=== PATIENT | female | born 1940 | race Caucasian/White ===

== ENCOUNTER 2022-03-17 17:38 | Inpatient (IN) ==
[2022-03-17] MEDS ORDERED: FAMOTIDINE 20MG IV PUSH 20 MG/5 ML SYR IV STA (18:01)
[2022-03-17] MEDS ORDERED: ONDANSETRON INJ 2 MG/ML 2 ML VIAL IV STA (18:01)
[2022-03-17] MEDS ORDERED: SODIUM CHLORIDE 0.9% 1000ML 1,000 ML IV ONE (18:01)
[2022-03-17] MEDS ORDERED: ACETAMINOPHEN 1,000 MG/100 ML VIAL IV STA (18:01)
--- NOTE | 2022-03-17 18:23 | Emergency Department Note ---
Impression & Plan SBO (small bowel obstruction), Lower abdominal pain, Nausea & vomiting ED Provider Note NAME: ELISA HUFF AGE: 81 SEX: F ARRIVES VIA: Ambulance INFORMANT: Patient ED PROVIDER(S): Darryn Padgett MD CHIEF COMPLAINT: Abdominal pain, n/v/d. PLAN: Disposition: Admit MEDICAL DECISION MAKING: The patient is a pleasant 81-year-old woman past medical history of hypertension who presents to the emergency department via EMS, accompanied by her granddaughter for evaluation of lower abdominal pain with nausea, vomiting, diarrhea over the past several days. She denies any cough or congestion, CP, or SOB. She reports she has not been able to eat or drink much and has felt weak and dizzy. She reports she does have a history of hernia repair approximately 3-4 years ago when she was living in [place]. She recently relocated to [place] a year ago. On arrival the patient is fatigued and uncomfortable appearing but no acute distress, afebrile stable vital signs. She appears clinically dry. She is mild lower abdominal discomfort tenderness. No guarding or rebound. EKG demonstrates left bundle branch block, no sgarbossa criteria. No prior EKG for comparison. WBC, hemoglobin and platelets within normal limits. Chemistry without metabolic acidosis. BUN/creatinine>40 consistent with patient's clinically dry appearance. AST 43, nonspecific and LFTs otherwise unremarkable. High- sensitivity troponin 6.2, within normal limits. Lipase is not elevated. UA appears contaminated albeit with nitrites and 4+ bacteria. Respiratory viral panel/bio fire was negative. CT of the abdomen pelvis was performed and demonstrates evidence of small bowel obstruction. Upon reevaluation the patient did feel some improvement after IV fluid hydration, APAP, famotidine, Zofran. However still uncomfortable with pain. Case was discussed with general surgery on-call, Dr. Orozco, who reviewed the patient's images. Agrees with plan for admission to hospitalist service for conservative management with NGT and IVF hydration and will be available for inpatient consultation. Findings and plan for admission reviewed with the patient and granddaughter at the bedside. Both were in agreement. Dr. Ramirez, [facility] [place], to evaluate the patient for admission. Triage Nursing notes reviewed and agree them. Prior medical records reviewed Vital Signs: reviewed Differential diagnosis: Appendicitis, ovarian cyst, ovarian torsion, ectopic , TOA, PID, infections, diverticulitis, UTI, obstruction, mesenteric ischemia, aortic pathology, inflammatory bowel disease, renal colic, PUD, pancreatitis, biliary pathology, hernia, volvulus, constipation, as well as other pathologies. ER treatment provided: See below. Diagnostics interpreted by me: ECG: Normal sinus rhythm, 78 bpm, no ectopy, LBBB, no sgarbossa criteria. No prior for comparison. Cardiac Monitoring: An order for continuous cardiac monitoring was placed and demonstrated Normal sinus rhythm, 78 bpm, no ectopy. Laboratory studies: See below Imaging studies: See below Consultation(s): Dr. Orozco, General surgery Dr. Ramirez, [facility] hospitalist HPI: The patient is a pleasant 81-year-old woman past medical history of hypertension who presents to the emergency department via EMS, accompanied by her granddaughter for evaluation of lower abdominal pain with nausea, vomiting, diarrhea over the past several days. She denies any cough or congestion, CP, or SOB. She reports she has not been able to eat or drink much and has felt weak and dizzy. She reports she does have a history of hernia repair approximately 3-4 years ago when she was living in [place]. She recently relocated to [facility] a year ago. ROS: See above HPI for pertinent positives & negatives. A total of 10 systems reviewed and were otherwise negative. VITALS:See Below PHYSICAL EXAMINATION: GENERAL: Awake, alert, fatigued/uncomfortable-appearing, in no distress HENT: Normocephalic, atraumatic. Oropharynx with dry mucous membranes and other argueta unremarkable. EYES: Normal conjunctiva. Sclera non-icteric. NECK: Supple. No nuchal rigidity. FROM. No JVD. RESPIRATORY: Clear to auscultation. CARDIAC: Regular rate, normal rhythm. Extremities warm and well perfused. Pulses equal. ABDOMEN: Soft, non-distended. Mild lower abdominal tenderness to palpation. No rebound or guarding. No masses. RECTAL: Deferred. MUSCULOSKELETAL: Chest examination reveals no tenderness. The back is symmetrical on inspection without obvious abnormality. There is no CVA tenderness to palpation. No joint edema. LOWER EXTREMITIES: Calves are equal size bilaterally and non-tender. No edema. No discoloration. NEURO: Normal sensorium. No sensory or motor deficits noted. SKIN: No rash or jaundice noted. Darryn Padgett MD Past Med/Surg History Medical History HTN (hypertension) Osteoarthritis Surgical History H/O hernia repair Family History Other Family history non-contributory Social History Smoking Status: Former smoker Tobacco Type: Cigarettes Second Hand Exposure: No; Do You Dip or Chew Tobacco: No; Tobacco Cessation Education Requested by Patient: No Hx Alcohol Use: No Hx Substance Use: No Preferred Language: Setswana Communication Ability: Effective Ground Worker Required: No Beliefs That Will Affect Care: None Current Living Situation: Other Current Living Situation Comment: lives with daughter and dogs Other Information That Helps Us Care for You: No Feels Safe at Home: Yes Safety Concerns: Feels Safe At This Time Assistive Devices: Denture - Upper, Denture - Lower, Glasses and Walker Allergies Allergies Allergy/AdvReac Type Severity Reaction Status Date / Time No Known Allergies Allergy Unverified 03/17/22 21:28 Home Meds Home Medications Medication Instructions Recorded Confirmed amlodipine 2.5 mg tablet 2.5 mg PO QAM 03/17/22 03/17/22 diclofenac sodium 75 mg 75 mg PO BID PRN arthritis 03/17/22 03/17/22 tablet,delayed release escitalopram oxalate 5 mg tablet 5 mg PO QAM 03/17/22 03/17/22 oxybutynin chloride 15 mg 30 mg PO QAM 03/17/22 03/17/22 tablet,extended release 24 hr Results & Data (ED) Vital Signs Vital Signs - 24 hr 03/17/22 17:48 03/17/22 18:04 03/17/22 18:07 Temperature 36.5 C Temperature Source Oral Pulse Rate 81 86 Pulse Rate from SpO2 Sensor 78 Pulse Rhythm Regular Pulse Strength Normal Respiratory Rate 12 24 Respiratory Effort / Characteristics Non-Labored Spontaneous Respiratory Depth Normal Respiratory Pattern Regular Blood Pressure 106/68 Blood Pressure Mean 80 Blood Pressure Position Lying Pulse Oximetry 96 93 93 Oxygen Delivery Method Room Air Room Air Sepsis Recent Fever Within 48 Hours No Sepsis New/Unexplained Change in Mental Status No Sepsis Action Taken by Nursing No Action Required 03/17/22 18:10 03/17/22 18:20 03/17/22 18:30 Temperature Temperature Source Pulse Rate 86 78 88 Pulse Rate from SpO2 Sensor 86 76 74 Pulse Rhythm Pulse Strength Respiratory Rate 14 14 44 H Respiratory Effort / Characteristics Respiratory Depth Respiratory Pattern Blood Pressure Blood Pressure Mean Blood Pressure Position Pulse Oximetry 91 94 29 L Oxygen Delivery Method Sepsis Recent Fever Within 48 Hours Sepsis New/Unexplained Change in Mental Status Sepsis Action Taken by Nursing 03/17/22 18:40 03/17/22 18:50 03/17/22 19:00 Temperature Temperature Source Pulse Rate 68 66 70 Pulse Rate from SpO2 Sensor Pulse Rhythm Pulse Strength Respiratory Rate 17 19 15 Respiratory Effort / Characteristics Respiratory Depth Respiratory Pattern Blood Pressure 106/68 Blood Pressure Mean 80 Blood Pressure Position Pulse Oximetry Oxygen Delivery Method Sepsis Recent Fever Within 48 Hours Sepsis New/Unexplained Change in Mental Status Sepsis Action Taken by Nursing 03/17/22 19:10 03/17/22 19:20 03/17/22 19:30 Temperature Temperature Source Pulse Rate 70 72 67 Pulse Rate from SpO2 Sensor 73 68 Pulse Rhythm Pulse Strength Respiratory Rate 18 18 18 Respiratory Effort / Characteristics Respiratory Depth Respiratory Pattern Blood Pressure Blood Pressure Mean Blood Pressure Position Pulse Oximetry 87 L 93 Oxygen Delivery Method Sepsis Recent Fever Within 48 Hours Sepsis New/Unexplained Change in Mental Status Sepsis Action Taken by Nursing 03/17/22 19:40 03/17/22 19:50 03/17/22 20:00 Temperature Temperature Source Pulse Rate 71 72 74 Pulse Rate from SpO2 Sensor 71 69 73 Pulse Rhythm Pulse Strength Respiratory Rate 18 12 14 Respiratory Effort / Characteristics Respiratory Depth Respiratory Pattern Blood Pressure Blood Pressure Mean Blood Pressure Position Pulse Oximetry 95 91 92 Oxygen Delivery Method Sepsis Recent Fever Within 48 Hours Sepsis New/Unexplained Change in Mental Status Sepsis Action Taken by Nursing Laboratory Data Attestation: I reviewed the patient's lab results. 03/17/22 18:23 03/17/22 18:23 Lab Results 03/17/22 03/17/22 03/17/22 Range/Units 18:05 18:23 18:23 WBC 6.38 (4.8-10.8) K/ul RBC 4.68 (3.93-5.22) M/uL Hgb 15.7 (12.0-16.0) g/dl Hct 47.4 H (34.1-44.9) % MCV 101.3 H (80.0-100.0) fL MCH 33.5 (25.0-34.0) pg MCHC 33.1 (32.0-36.0) g/dL RDW Std Deviation 50.4 H (36.4-46.3) fL RDW Coeff of Kandy 13.4 (11.5-14.5) % Plt Count 333 (130-400) K/uL MPV 10.5 (9.4-12.3) fL Immature Gran % (Auto) 1.1 % Neut % (Auto) 68.7 % Lymph % (Auto) 13.3 % [place] % (Auto) 15.7 % Eos % (Auto) 0.6 % Baso % (Auto) 0.6 % Neut # (Auto) 4.38 (1.4-6.5) K/uL Lymph # (Auto) 0.85 L (1.2-3.4) K/uL [place] # (Auto) 1.00 H (0.24-0.82) K/uL Eos # (Auto) 0.04 (0-0.50) K/uL Baso # (Auto) 0.04 (0-0.2) K/uL Immature Gran # (Auto) 0.07 H (0.00-0.02) K/uL Sodium 139 (136-145) mmol/L Potassium 4.9 (3.5-5.1) mmol/L Chloride 101 (98-107) mmol/L Carbon Dioxide 30 (21-32) mmol/L Anion Gap 8 (3-11) BUN 34 H (6-23) mg/dl Creatinine 0.72 (0.6-1.2) mg/dl Est Cr Clr Drug Dosing 50.1 ml/min Est GFR ( Amer) 92.3 ml/min Est GFR (Non-Af Amer) 79.7 ml/min BUN/Creatinine Ratio 47.2 H (10-20) Glucose 132 H (70-99(Fasting)) mg/dl Calcium 10.2 H (8.5-10.1) mg/dl Phosphorus 4.2 (2.5-4.9) mg/dl Magnesium 2.1 (1.7-2.4) mg/dl Total Bilirubin 0.5 (0.2-1.0) mg/dl AST 43 H (13-39) U/L ALT 44 (7-52) U/L Alkaline Phosphatase 72 (34-104) U/L Total Protein 7.6 (6.0-8.3) gm/dl Albumin 4.2 (3.4-5.0) gm/dl Globulin 3.4 (2.5-4.0) gm/dl Albumin/Globulin Ratio 1.2 (0.9-2) Lipase < 3 L (11-82) U/L Adenovirus (PCR) Not Detected (NotDetected) B. pertussis DNA (PCR) Not Detected (NotDetected) B.parapertussis DNA PCR Not Detected (NotDetected) C. pneumoniae DNA (PCR) Not Detected (NotDetected) Coronavirus OC43 (PCR) Not Detected (NotDetected) Coronavirus HKU1 (PCR) Not Detected (NotDetected) Coronavirus 229E (PCR) Not Detected (NotDetected) SARS-CoV-2 (PCR) Not Detected (NotDetected) Coronavirus NL63 (PCR) Not Detected (NotDetected) Human Metapneumovir PCR Not Detected (NotDetected) Influenza Type A (PCR) Not Detected (NotDetected) Influenza Type B (PCR) Not Detected (NotDetected) M. pneumoniae (PCR) Not Detected (NotDetected) Parainfluenza 1 (PCR) Not Detected (NotDetected) Parainfluenza 2 (PCR) Not Detected (NotDetected) Parainfluenza 3 (PCR) Not Detected (NotDetected) Parainfluenza 4 (PCR) Not Detected (NotDetected) RSV (PCR) Not Detected (NotDetected) Entero/Rhino (PCR) Not Detected (NotDetected) Administered Medications Acetaminophen (Acetaminophen 1000 Mg/100 Ml Iv) 1,000 mg IV Q8H [facility] Stop: 03/21/22 01:59 Last Admin: 03/18/22 01:18 Dose: 1,000 mg Documented By: Sodium Chloride (Nss 1000ml) 1,000 mls @ 125 mls/hr IV .Q8H [facility] Stop: 03/18/22 16:56 Last Admin: 03/18/22 01:34 Dose: 125 mls/hr Documented By: Discontinued Medications Sodium Chloride (Nss 1000ml) 1,000 mls @ 999 mls/hr IV .Q1H1M ONE Stop: 03/17/22 19:01 Last Infusion: 03/17/22 19:17 Dose: 0 mls/hr Documented By: Admin: 03/17/22 18:13 Dose: 999 mls/hr Documented By: LISBETH Acetaminophen (Ofirmev) 1,000 mg in 100 mls @ 400 mls/hr IV NOW STA Stop: 03/17/22 18:15 Last Infusion: 03/17/22 18:49 Dose: 0 mls/hr Documented By: Admin: 03/17/22 18:12 Dose: 400 mls/hr Documented By: LISBETH Famotidine (Pepcid 20mg Iv Push) 20 mg in 5 mls @ 2.5 mls/min IV NOW STA Stop: 03/17/22 18:02 Last Admin: 03/17/22 18:12 Dose: 2.5 mls/min Documented By: LISBETH Ioversol (Optiray 350 100ml) 84 ml IV ONCE ONE Stop: 03/17/22 20:17 Last Admin: 03/17/22 20:17 Dose: 84 ml Documented By: LOUIS Ondansetron HCl (Ondansetron Inj 2 Mg/Ml 2 Ml Vial) 4 mg IV NOW STA Stop: 03/17/22 18:02 Last Admin: 03/17/22 18:11 Dose: 4 mg Documented By: LISBETH Imaging Data Radiologist's Impression: Abdomen/Pelvis CT 03/17/22 18:01 CT abd pelvis IV con only CLINICAL HISTORY: lower abd pain, n/v/d TECHNIQUE: Helical axial images of the abdomen and pelvis were obtained and displayed. Automated dose lowering techniques and/or adjustment according to p atient size were utilized for this exam. This exam was performed with intravenous contrast. CT DOSE: 299.23 mGy.cm COMPARISON: None available at the time of this dictation. FINDINGS: Lower chest: Emphysema and peripheral scarring is seen. Severe atherosclerotic disease is seen in the coronary arteries. Liver: Unremarkable. No focal lesions are seen. Gallbladder and biliary tree: No calcified gallstones. Normal caliber wall. No intra- or extrahepatic biliary ductal dilation. Pancreas: Unremarkable, no focal lesions. Spleen: Unremarkable. Adrenals: Unremarkable. Kidneys and ureters: Unremarkable. Bladder: Unremarkable. Reproductive organs: Patient is status post hysterectomy. Bowel: Numerous dilated loops of small bowel are seen with a maximum diameter of 35 mm. There is a transition point in the right lower quadrant with a vascular swirl just proximal to an anastomosis site from a presumed prior bowel resection. Small bowel distal to this site is under distended and there is minimal colonic contents as well. No proximal transition point is seen. No mural gas is seen. Lymph nodes Retroperitoneal: Unremarkable. Pelvic: Unremarkable. Mesenteric: Unremarkable. Peritoneum: Normal. Vessels: Atherosclerotic calcifications are seen. Abdominal wall: Unremarkable. Bones: Degenerative changes in the visualized spine. Grade 1 retrolisthesis of L2 on L3 is seen. IMPRESSION: There are multiple dilated loops of small bowel with a well-defined transition point near the surgical anastomosis site and decompressed distal small bowel and colon. Findings are compatible with a high-grade small bowel obstruction. No evidence of bowel ischemia is seen. ACT 112: Negative or not required by law. Electronically signed by: Darren Coy M.D. 03/17/2022 8:29 PM Discharge Plan Visit Data Chief Complaint: Abdominal Pain ED Provider: Darryn Padgett Discharge Problem: SBO (small bowel obstruction), Lower abdominal pain, Nausea & vomiting Patient Disposition: Admitted As Inpatient Discharge Instructions Interventions: ED Discharge Assessment Last Done: 03/18/22 00:32
[2022-03-17 18:46] LABS: Hematocrit (blood only) 47.4 % (34.1-44.9); Hemoglobin 15.7 g/dl (12.0-16.0); Mean Corpuscular Hemoglobin 33.5 pg (25.0-34.0); Mean Corpuscular Hgb Conc 33.1 g/dL (32.0-36.0); Mean Corpuscular Volume 101.3 fL (80.0-100.0); Mean Platelet Volume 10.5 fL (9.4-12.3); Platelet Count 333 K/uL (130-400); RDW Coefficient of Variation 13.4 % (11.5-14.5); RDW Standard Deviation 50.4 fL (36.4-46.3); Red Blood Count 4.68 M/uL (3.93-5.22); White Blood Count 6.38 K/ul (4.8-10.8)
[2022-03-17 19:03] LABS: Basophils # (auto) 0.04 K/uL (0-0.2); Basophils % (auto) 0.6 %; Eosinophils # (auto) 0.04 K/uL (0-0.50); Eosinophils % (auto) 0.6 %; Immature Granulocytes # (auto) 0.07 K/uL (0.00-0.02); Immature Granulocytes % (auto) 1.1 %; Lymphocytes # (auto) 0.85 K/uL (1.2-3.4); Lymphocytes % (auto) 13.3 %; Monocytes % (auto) 15.7 %; Neutrophils # (auto) 4.38 K/uL (1.4-6.5); Neutrophils % (auto) 68.7 %
[2022-03-17 19:15] LABS: Anion Gap 8 (3-11); BUN Creatinine Ratio 47.2 (10-20); Blood Urea Nitrogen 34 mg/dl (6-23); Calcium 10.2 mg/dl (8.5-10.1); Carbon Dioxide 30 mmol/L (21-32); Chloride 101 mmol/L (98-107); Creatinine Clr Calc Pharmacy 50.1 ml/min; Est GFR (African American) 92.3 ml/min; Est GFR (Non-African American) 79.7 ml/min; Glucose 132 mg/dl (70-99(Fasting)); Potassium 4.9 mmol/L (3.5-5.1); Sodium 139 mmol/L (136-145)
[2022-03-17 19:29] LABS: Adenovirus PCR Not Detected (NotDetected); Bordetella parapertussis PCR Not Detected (NotDetected); Bordetella pertussis PCR Not Detected (NotDetected); Chlamydia pneumoniae PCR Not Detected (NotDetected); Coronavirus 229E PCR Not Detected (NotDetected); Coronavirus CoV-2 (COVID19)PCR Not Detected (NotDetected); Coronavirus HKU1 PCR Not Detected (NotDetected); Coronavirus NL63 PCR Not Detected (NotDetected); Coronavirus OC43PCR Not Detected (NotDetected); Human Metapneumovirus PCR Not Detected (NotDetected); Influenza A PCR Not Detected (NotDetected); Influenza B PCR Not Detected (NotDetected); Mycoplasma pneumoniae PCR Not Detected (NotDetected); Parainfluenza Virus 1 PCR Not Detected (NotDetected); Parainfluenza Virus 2 PCR Not Detected (NotDetected); Parainfluenza Virus 3 PCR Not Detected (NotDetected); Parainfluenza Virus 4 PCR Not Detected (NotDetected); Respiratory Syncytial VirusPCR Not Detected (NotDetected); Rhinovirus/Enterovirus PCR Not Detected (NotDetected)
[2022-03-17 19:50] LABS: Alanine Aminotransferase 44 U/L (7-52); Albumin Globulin Ratio 1.2 (0.9-2); Albumin Level 4.2 gm/dl (3.4-5.0); Alkaline Phosphatase 72 U/L (34-104); Aspartate Aminotransferase 43 U/L (13-39); Bilirubin,Total 0.5 mg/dl (0.2-1.0); Globulin 3.4 gm/dl (2.5-4.0); Lipase < 3 U/L (11-82); Magnesium 2.1 mg/dl (1.7-2.4); Phosphorus 4.2 mg/dl (2.5-4.9); Total Protein 7.6 gm/dl (6.0-8.3)
[2022-03-17] MEDS ORDERED: OPTIRAY 350 100ml IV ONE (20:16)
--- NOTE | 2022-03-17 20:30 | CT Scan Report ---
CT abd pelvis IV con only CLINICAL HISTORY: lower abd pain, n/v/d TECHNIQUE: Helical axial images of the abdomen and pelvis were obtained and displayed. Automated dose lowering techniques and/or adjustment according to patient size were utilized for this exam. This e xam was performed with intravenous contrast. CT DOSE: 299.23 mGy.cm COMPARISON: None available at the time of this dictation. FINDINGS: Lower chest: Emphysema and peripheral scarring is seen. Severe atherosclerotic disease is seen in th e coronary arteries. Liver: Unremarkable. No focal lesions are seen. Gallbladder and biliary tree: No calcified gallstones. Normal caliber wall. No intra- or extrahepatic biliary ductal dilation. Pancreas: Unremarkable, no focal lesions. Spleen: Unremarkable. Adrenals: Unremarkable. Kidneys and ureters: Unremarkable. Bladder: Unremarkable. Reproductive organs: Patient is status post hysterectomy. Bowel: Numerous dilated loops of small bowel are seen with a maximum diameter of 35 mm. There is a tr ansition point in the right lower quadrant with a vascular swirl just proximal to an anastomosis site from a presumed prior bowel resection. Small bowel distal to this site is under distended and there is minimal colonic contents as well. No proximal transition point is seen. No mural gas is seen. Lymph nodes Retroperitoneal: Unremarkable. Pelvic: Unremarkable. Mesenteric: Unremarkable. Peritoneum: Normal. Vessels: Atherosclerotic calcifications are seen. Abdominal wall: Unremarkable. Bones: Degenerative changes in the visualized spine. Grade 1 retrolisthesis of L2 on L3 is seen. IMPRESSION: There are multiple dilated loops of small bowel with a well-defined transition point near the surgica l anastomosis site and decompressed distal small bowel and colon. Findings are compatible with a high -grade small bowel obstruction. No evidence of bowel ischemia is seen. ACT 112: Negative or not required by law. Electronically signed by: Darren Coy M.D. 03/17/2022 8:29 PM
--- NOTE | 2022-03-17 22:06 | History & Physical Report ---
Date of Service March 17, 2022 Assessment & Plan (1) SBO (small bowel obstruction): Plan: 81yo female with a history of HTN, spastic bladder, hiatal hernia, shoulder OA, and dementia presents with a few-day history of abdominal pain, nausea, vomiting, and diarrhea. SBO Patient presents with a one-week history of abdominal pain, nausea, vomiting, and diarrhea Initial labs unremarkable; initial labs notable for borderline-elevated c alcium (10.2) and mildly-elevated AST (43) CT a/p: multiple dilated loops of small bowel with a well-defined transition point near the surgical anastomosis site and decompressed distal small bowel and colon; findings are compatible with a high-grade small bowel obstruction; no evidence of bowel ischemia General surgery consulted NG tube placed NPO Pain control: APAP 1000mg IV q8h scheduled, morphine 1mg q2h prn mod/severe pain Zofran prn nausea Trend CBC, CMP HTN: home amlodipine Spastic bladder: home oxybutinin OA: home diclofenac Dementia: home lexapro FEN: NPO Code status: conditional (NO compressions, NO defibrillation, intubation OK) DVT ppx: SCDs Consults: general surgery PT/OT: ordered Dispo: med/surg (2) HTN (hypertension): (3) Spastic bladder: (4) Osteoarthritis: History of Present Illness Primary Care Provider: NO PCP 81yo female with a history of HTN, hiatal hernia (s/p surgical repair four years ago), history of SBO (four years ago), spastic bladder, shoulder OA, and dementia presents with a few-day history of abdominal pain, nausea, vomiting, and diarrhea. Patient also reports poor PO intake and intermittent lightheadedness. Symptoms began gradually. Patient has not been able to tolerate much PO over the past 2-3 days. Patient denies fever, chills, CP, SOB, edema, dysuria, hematochezia, melena, numbness, tingling, weakness, or other symptoms. Denies recent illness and recent travel. Upon arrival, vitals were relatively unremarkable; BP controlled, no tachycardia, no tachypnea, patient afebrile, spO2 adequate on room air. Initial labs were notable for borderline-elevated calcium (10.2) and elevated AST (43); no leukocytosis, no anemia, platelets wnl, no additional electrolyte abnormalities, creatinine not elevated, LFTs otherwise wnl, Tbili not elevated, lipase wnl, covid PCR negative, respiratory biofire negative. In the ED, patient received NSS 1L bolus (x1), famotidine 20mg IV (x1), zofran, and acetaminophen. EKG: pending CT a/p: there are multiple dilated loops of small bowel with a well-defined transition point near the surgical anastomosis site and decompressed distal small bowel and colon; findings are compatible with a high-grade small bowel obstruction; no evidence of bowel ischemia is seen Surrogate decision-maker in case of an emergency: saroj Mike (cell:[phone]) Allergies Allergy/AdvReac Type Severity Reaction Status Date / Time No Known Allergies Allergy Unverified 03/17/22 21:28 Home Medications Medication Instructions Recorded Confirmed Type amlodipine 2.5 mg tablet 2.5 mg PO QAM 03/17/22 03/17/22 History diclofenac sodium 75 mg 75 mg PO BID PRN arthritis 03/17/22 03/17/22 History tablet,delayed release escitalopram oxalate 5 mg tablet 5 mg PO QAM 03/17/22 03/17/22 History oxybutynin chloride 15 mg 30 mg PO QAM 03/17/22 03/17/22 History tablet,extended release 24 hr Past Med/Surg History Medical History HTN (hypertension) Osteoarthritis Surgical History H/O hernia repair Family History Other Family history non-contributory Social History Smoking Status: Former smoker Tobacco Type: Cigarettes Second Hand Exposure: No; Do You Dip or Chew Tobacco: No; Tobacco Cessation Education Requested by Patient: No Hx Alcohol Use: No Hx Substance Use: No Preferred Language: Salvadorean Communication Ability: Effective Produce Wrapper Required: No Beliefs That Will Affect Care: None Current Living Situation: Other Current Living Situation Comment: lives with daughter and dogs Other Information That Helps Us Care for You: No Feels Safe at Home: Yes Safety Concerns: Feels Safe At This Time Assistive Devices: None Review of Systems Review of Systems: See HPI Physical Exam Physical Exam: Constitutional: well-appearing, no acute distress HEENT: NG tube in place CV: regular rhythm, no murmur appreciated, extremities well-perfused, no LE edema Resp: CTABL, no wheezes/rales/rhonchi appreciated, no increased work of breathing GI: soft, nondistended, moderate generalized tenderness worse at the epigastrium MSK: no gross deformities appreciated Skin: warm, dry, no rash appreciated Neuro: alert, oriented, no focal neurologic deficit appreciated Results & Data Results & Data ([facility]) Vital Signs (Past 12 Hours) Vital Signs Temp Pulse Resp BP Pulse Ox O2 Del Method 03/17/22 20:00 74 14 92 03/17/22 19:50 72 12 91 03/17/22 19:40 71 18 95 03/17/22 19:30 67 18 93 03/17/22 19:20 72 18 87 L 03/17/22 19:10 70 18 03/17/22 19:00 70 15 03/17/22 18:50 66 19 03/17/22 18:40 68 17 106/68 03/17/22 18:30 88 44 H 29 L 03/17/22 18:20 78 14 94 03/17/22 18:10 86 14 91 03/17/22 18:07 86 24 93 03/17/22 18:04 93 Room Air 03/17/22 17:48 36.5 C 81 12 106/68 96 Room Air Supervising Physician Co-Signing Physician Notes Attending addendum: I have physically seen this patient, have supervised the medical residents activities, and agree with the H&P unless as otherwise noted. Assessment and Plan: Small bowel obstruction- CT suggest high-grade SBO with well-defined transition point near the surgical anastomosis site NPO pain control with IV Tylenol and then morphine as noted Zofran 4 mg IV every 6 hours as needed Follow laboratories General surgery to follow Hypertension- Hold amlodipine while n.p.o. Spastic bladder- Hold oxybutynin while n.p.o. Dementia- Holding Lexapro while n.p.o. Remaining orders and notations as noted Resident Activity Tracking Resident Involvement: Resident Care Provided and Adjunct Art History Instructor Coverage Note Care Provided: Adult Hospital Medicine
[2022-03-17] MEDS ORDERED: DICLOFENAC SODIUM 75 MG TABCR PO PRN (22:24)
--- NOTE | 2022-03-17 23:51 | XRay Report ---
SINGLE VIEW CHEST CLINICAL HISTORY: Enteric tube placement. FINDINGS: An AP, portable, upright chest radiograph is obtained. No prior studies are available for c omparison at the time of dictation. An enteric tube is in place. The tip projects over the distal eso phagus below the level of the alfonso. The heart is top normal for projection noting atherosclerotic c alcification of the thoracic aorta. There is a prominent left hilar density. Emphysematous change is noted. There is elevation of the left hemidiaphragm with bibasilar scarring/atelectasis. No airspace consolidation typical for pneumonia or large pleural effusion is identified. No pneumothorax is seen. The skeletal structures are osteopenic. The bony thorax is grossly intact. IMPRESSION: 1. An enteric tube has been placed. The tip projects over the distal esophagus below the alfonso. This should be advanced. 2. Emphysematous change with no acute cardiopulmonary abnormality identified. 3. Enlargement of the left hilum may represent an enlarged pulmonary artery. Correlation with a contr ast enhanced chest CT is recommended to exclude hilar lesion or lymphadenopathy. ACT 112: Negative or not required by law. Electronically signed by: Remington Jauregui M.D. 03/17/2022 11:49 PM
[2022-03-18] MEDS ORDERED: ONDANSETRON INJ 2 MG/ML 2 ML VIAL IV PRN (00:57)
[2022-03-18] MEDS: ACETAMINOPHEN 1000 MG/100 ML IV IV SCH ×3 (01:18→18:09)
[2022-03-18] MEDS: SODIUM CHLORIDE 0.9% 1000ML 1,000 ML IV SCH ×2 (01:34→09:35)
[2022-03-18 01:49] LABS: Appearance Urine Cloudy (Clear); Bacteria Urine Automated 4+ (Negative); Bilirubin Urine Negative (Negative); Blood Urine Negative (Negative); Color Urine Yellow; Glucose Urine UA Negative (Negative); Ketones Urine Trace (Negative); Leukocyte Esterase Urine Negative (Negative); Nitrite Urine Positive (Negative); Protein Urine Trace (Negative); RBC Urine Automated 0-4 /hpf (0-4); Specific Gravity Urine > 1.045 (1.000-1.030); Urobilinogen Urine Negative (Negative)
[2022-03-18] MEDS: MoRPHine SULFATE 2 MG/ML CARP IV PRN ×2 (07:27→11:14)
[2022-03-18 07:33] LABS: Hematocrit (blood only) 43.5 % (34.1-44.9); Hemoglobin 14.4 g/dl (12.0-16.0); Mean Corpuscular Hemoglobin 33.5 pg (25.0-34.0); Mean Corpuscular Hgb Conc 33.1 g/dL (32.0-36.0); Mean Corpuscular Volume 101.2 fL (80.0-100.0); Mean Platelet Volume 10.2 fL (9.4-12.3); Platelet Count 307 K/uL (130-400); RDW Coefficient of Variation 13.5 % (11.5-14.5); RDW Standard Deviation 50.9 fL (36.4-46.3); White Blood Count 4.72 K/ul (4.8-10.8)
[2022-03-18] MEDS: OXYBUTYNIN CHLORIDE XL 5 MG TABCR PO SCH (08:06)
[2022-03-18] MEDS: amLODIPine BESYLATE 5 MG TAB PO SCH (08:06)
[2022-03-18] MEDS: ESCITALOPRAM OXALATE 10 MG TAB PO SCH (08:06)
[2022-03-18 08:07] LABS: Albumin Globulin Ratio 1.3 (0.9-2); Albumin Level 3.8 gm/dl (3.4-5.0); Bilirubin,Total 0.5 mg/dl (0.2-1.0); Calcium 9.1 mg/dl (8.5-10.1); Creatinine Clr Calc Pharmacy 61.2 ml/min; Est GFR (African American) 98.9 ml/min; Est GFR (Non-African American) 85.3 ml/min; Globulin 2.9 gm/dl (2.5-4.0); Magnesium 2.1 mg/dl (1.7-2.4); Potassium 4.1 mmol/L (3.5-5.1); Total Protein 6.7 gm/dl (6.0-8.3)
--- NOTE | 2022-03-18 08:25 | Surgery Consultation ---
Date of Consultation March 18, 2022 Assessment & Plan (1) SBO (small bowel obstruction): We discussed her diagnosis. She is already feeling better and is much less distended. She is getting a fair amount out of her NG tube. We need to rehydrate her and keep the NG tube. Repeat x-rays tomorrow. Hopefully we can get her through this without surgery. We will continue to follow along closely. History of Present Illness Attending Physician: David Darin Yahir History of Present Illness 81-year-old female who had about a four 5-day history of no bowel movements. Eventually she became distended. She took a laxative and then began vomiting. Work-up in the emergency room reveals a small bowel obstruction. She states this is the first time this is happened to her. She has a history of an open hysterectomy as well as a right inguinal hernia. Currently feeling much better. She denies abdominal pain. Allergies Allergy/AdvReac Type Severity Reaction Status Date / Time No Known Allergies Allergy Unverified 03/17/22 21:28 Home Medications Medication Instructions Recorded Confirmed Type amlodipine 2.5 mg tablet 2.5 mg PO QAM 03/17/22 03/17/22 History diclofenac sodium 75 mg 75 mg PO BID PRN arthritis 03/17/22 03/17/22 History tablet,delayed release escitalopram oxalate 5 mg tablet 5 mg PO QAM 03/17/22 03/17/22 History oxybutynin chloride 15 mg 30 mg PO QAM 03/17/22 03/17/22 History tablet,extended release 24 hr Patient History Medical History HTN (hypertension) Osteoarthritis Surgical History H/O hernia repair Family History Other Family history non-contributory Social History Smoking Status: Former smoker Tobacco Type: Cigarettes Second Hand Exposure: No; Do You Dip or Chew Tobacco: No; Tobacco Cessation Education Requested by Patient: No Hx Alcohol Use: No Hx Substance Use: No Preferred Language: Macedonian Communication Ability: Effective Bull Fiddle Player Required: No Beliefs That Will Affect Care: None Current Living Situation: Other Current Living Situation Comment: lives with daughter and dogs Other Information That Helps Us Care for You: No Feels Safe at Home: Yes Safety Concerns: Feels Safe At This Time Assistive Devices: Denture - Upper, Denture - Lower, Glasses and Walker Review of Systems Review of Systems: All systems reviewed & are unremarkable except as noted in HPI & below Physical Exam Constitutional: WD/WN, vitals as above no acute distress and not ill appearing Eyes: PERRL, conjunctivae normal, anicteric sclerae EOM intact bilaterally ENMT: external ear and nose normal, oropharynx normal Ears: no hearing impairment Neck: trachea midline, no thyromegaly Respiratory: normal respiratory effort; no respiratory distress and does not use accessory muscles Cardiovascular: Rate/Rhythm: regular rate and regular rhythm Gastrointestinal (Abdomen): Soft. Nontender nondistended. No palpable abnormalities. Skin: no rashes, warm and dry Psychiatric: Orientation: alert, oriented x 3 and cooperative Results & Data ([facility]) Vital Signs (Past 12 Hours) Vital Signs Temp Pulse Resp BP Pulse Ox O2 Del Method 03/18/22 08:02 36.7 C 80 19 151/83 H 95 Room Air 03/18/22 00:40 36.6 C 74 18 143/72 H 95 Room Air PG Care Time/CCT Total # of Minutes Spent Total Time Spent with Patient: Total time spent is greater than 50% in coordination of care (as documented) at patient's floor/unit and/or counseling patient: Coding Level of Care Code 81484 INT INP/OBS CARE 3/75MIN Diagnoses SBO (small bowel obstruction) K56.609
--- NOTE | 2022-03-18 09:50 | Progress Note ---
Date of Service March 18, 2022 Assessment & Plan (1) SBO (small bowel obstruction): Plan: 81yo female with a history of HTN, spastic bladder, hiatal hernia, shoulder OA, and dementia presents with a few-day history of abdominal pain, nausea, vomiting, and diarrhea. * Patient presents with a one-week history of abdominal pain, nausea, vomiting, and diarrhea * CT a/p: multiple dilated loops of small bowel with a well-defined transition point near the surgical anastomosis site and decompressed distal small bowel and colon; findings are compatible with a high-grade small bowel obstruction; no evidence of bowel ischemia * NGT w/ ongoing bilious output. * Abd soft and non-tender to palpation. * General surgery consulted and recommends ongoing conservative management. * Hope for resolve w/o need for surgical intervention. * Remains NPO * Contine w/ current pain regimen. Try and minimize utilization of narcotics in the SBO patient. * Zofran prn nausea (2) HTN (hypertension): Plan: * Hold home PO Rx in the setting of SBO w/ NGT to suction. * Consider IV dosing of Rx if necessary. (3) Spastic bladder: Plan: * Restart Oxybutinin when able. (4) Osteoarthritis: Plan: * Home antiinflammatory Rx when able. * Should be well addressed w/ current pain meds. Admission and Anticipated Discharge Date Admission Date: March 17, 2022 Subjective Patient seen and evaluated by myself this morning. She reports that her abdominal pain is improved and she has not vomited, however she does complain that the NG tube makes her feel as though she wants to gag. Additionally, she complains of a mild headache which she reports that she gets occasionally. She has not had a bowel movement or pass gas today. Otherwise, she offers no comp laints of pain at this time. Review of Systems Review of Systems: A complete 10 point review of systems was reviewed with the patient with pertinent positives and negatives as per history of present illness. All else were negative. Physical Exam Physical Exam: VITAL SIGNS - Vital signs and nursing notes were reviewed. GENERAL - 81-year-old female appearing her stated age who is in no acute distress. Communicates well with provider and answers questions appropriately. NOSE - NGT in place to the LEFT naris. Midline and without cyanosis. No epistaxis or purulent drainage noted. MOUTH/OROPHARYNX - Without perioral cyanosis. Buccal mucosa pink and dry. LUNGS - Chest wall symmetric without accessory muscle use, intercostals retractions, or central cyanosis. Normal vesicular breath sounds CTA B/L. No wheezes, rales, or rhonchi appreciated. CARDIAC - RRR with S1/S2. No murmur, rubs, or gallops appreciated. ABDOMEN - Abdominal contour flat without pulsations or visible masses. No BS appreciated. No TTP throughout. EXTREMITIES - No pretibial edema present. +3/5 radial and dorsalis pedis pulses palpated throughout. NEUROLOGIC - Cranial nerves II through XII grossly intact. Sensory intact to light touch throughout. PSYCH - A&Ox3 and cooperates fully with examiner. Pt is very pleasant and interacts well with examiner. Results & Data ([facility]) Vital Signs (Past 12 Hours) Vital Signs Temp Pulse Resp BP Pulse Ox O2 Del Method 03/18/22 08:02 36.7 C 80 19 151/83 H 95 Room Air 03/18/22 00:40 36.6 C 74 18 143/72 H 95 Room Air PG Care Time/CCT Total # of Minutes Spent Total Time Spent with Patient: Total time spent is greater than 50% in coordination of care (as documented) at patient's floor/unit and/or counseling patient: Coding Level of Care Code 76298 SUB INP/OBS CARE 3/50MIN Diagnoses SBO (small bowel obstruction) K56.609 HTN (hypertension) I10 Spastic bladder N32.89 Osteoarthritis M19.90 Time Spent (min) 35
[2022-03-18] MEDS: cefTRIAXone SODIUM 1,000 MG in DEXTROSE 5% AD-VAN 50 ML IV SCH (11:19)
--- NOTE | 2022-03-18 20:34 | Billing Data ---
Date of Service March 18, 2022 Coding Level of Care Code 80829 INT INP/OBS CARE
[2022-03-19] MEDS: ACETAMINOPHEN 1000 MG/100 ML IV IV SCH ×3 (02:49→17:28)
--- NOTE | 2022-03-19 08:14 | Surgery Progress Note ---
Date of Service March 19, 2022 Assessment & Plan (1) SBO (small bowel obstruction): Plan: unclear why IVF's were stopped...will restart kub still showing dilated bowel loops if no return of bowel fx today, will order sbft tomorrow. tylenol for KURTZ (2) Dehydration: Admission and Anticipated Discharge Date Admission Date: March 17, 2022 Subjective pt seen. denies pain. no nausea. no bm or flatus yet Physical Exam Constitutional: WD/WN, vitals as above no acute distress and not ill appearing Eyes: PERRL, conjunctivae normal, anicteric sclerae EOM intact bilaterally ENMT: external ear and nose normal, oropharynx normal Ears: no hearing impairment Neck: trachea midline, no thyromegaly Respiratory: normal respiratory effort; no respiratory distress and does not use accessory muscles Cardiovascular: Rate/Rhythm: regular rate and regular rhythm Gastrointestinal (Abdomen): soft. non-distended. non-tender. scant bs's Skin: no rashes, warm and dry Psychiatric: Orientation: alert, oriented x 3 and cooperative Results & Data ([facility]) Vital Signs (Past 12 Hours) Vital Signs Temp Pulse Resp BP Pulse Ox O2 Del Method 03/19/22 07:42 36.7 C 59 L 16 130/76 97 Room Air PG Care Time/CCT Total # of Minutes Spent Total Time Spent with Patient: Total time spent is greater than 50% in coordination of care (as documented) at patient's floor/unit and/or counseling patient: Coding Level of Care Code 46609 SUB INP/OBS CARE 3/50MIN Diagnoses SBO (small bowel obstruction) K56.609 Dehydration E86.0
--- NOTE | 2022-03-19 08:20 | XRay Report ---
KUB HISTORY: Follow up study in a patient with reported small bowel obstruction sbo COMPARISON: CT 03/17/2022 FINDINGS: Distal tip of enteric tube projects over the proximal stomach with side port within the dis elyssa esophagus. Persistent small bowel obstruction with dilated air-filled loops of small bowel measur ing up to 3.8 cm. No significant change compared to the prior CT. No renal calculi. No ureteral calc anmol. No pneumoperitoneum or pneumatosis. Degenerative changes of the spine, pelvis and hips. Surgical clips of the right hemipelvis. Limited exam secondary to positioning. No fracture. IMPRESSION: 1. Side port of the enteric tube is present within the distal esophagus. Advancement recommended. 2. Persistent small bowel obstruction. 3. Limited exam secondary to positioning. ACT 112: Negative or not required by law. The above report was generated using voice recognition software. It may contain grammatical, syntax o r spelling errors. Electronically signed by: John Chavira M.D. 03/19/2022 8:19 AM
[2022-03-19] MEDS: ESCITALOPRAM OXALATE 10 MG TAB PO SCH (08:26)
[2022-03-19] MEDS: amLODIPine BESYLATE 5 MG TAB PO SCH (08:26)
[2022-03-19] MEDS: OXYBUTYNIN CHLORIDE XL 5 MG TABCR PO SCH (08:26)
[2022-03-19] MEDS: SODIUM CHLORIDE 0.9% 500 ML IV SCH ×4 (08:32→21:35)
[2022-03-19] MEDS: ACETAMINOPHEN 1,000 MG/100 ML VIAL IV PRN (08:32)
[2022-03-19 09:15] LABS: Basophils # (auto) 0.06 K/uL (0-0.2); Basophils % (auto) 0.9 %; Eosinophils # (auto) 0.15 K/uL (0-0.50); Eosinophils % (auto) 2.2 %; Hematocrit (blood only) 40.2 % (34.1-44.9); Hemoglobin 13.2 g/dl (12.0-16.0); Immature Granulocytes # (auto) 0.02 K/uL (0.00-0.02); Immature Granulocytes % (auto) 0.3 %; Lymphocytes % (auto) 26.9 %; Mean Corpuscular Hemoglobin 33.8 pg (25.0-34.0); Mean Corpuscular Hgb Conc 32.8 g/dL (32.0-36.0); Mean Corpuscular Volume 102.8 fL (80.0-100.0); Mean Platelet Volume 10.7 fL (9.4-12.3); Monocytes # (auto) 0.99 K/uL (0.24-0.82); Monocytes % (auto) 14.8 %; Neutrophils # (auto) 3.68 K/uL (1.4-6.5); Neutrophils % (auto) 54.9 %; Platelet Count 263 K/uL (130-400); RDW Coefficient of Variation 13.3 % (11.5-14.5); RDW Standard Deviation 51.1 fL (36.4-46.3); Red Blood Count 3.91 M/uL (3.93-5.22)
--- NOTE | 2022-03-19 09:43 | Progress Note ---
Date of Service March 19, 2022 Assessment & Plan (1) SBO (small bowel obstruction): Plan: 81yo female with a history of HTN, spastic bladder, hiatal hernia, shoulder OA, and dementia presents with a few-day history of abdominal pain, nausea, vomiting, and diarrhea. * Patient presents with a one-week history of abdominal pain, nausea, vomiting, and diarrhea * CT a/p: multiple dilated loops of small bowel with a well-defined transition point near the surgical anastomosis site and decompressed distal small bowel and colon; findings are compatible with a high-grade small bowel obstruction; no evidence of bowel ischemia. * NGT w/ ongoing bilious output. * Abd soft and non-tender to palpation. * Hope for resolve w/o need for surgical intervention. * Remains NPO * Contine w/ current pain regimen. Try and minimize utilization of narcotics in the SBO patient. * Zofran prn nausea * Appreciate general surgery's ongoing management. (2) HTN (hypertension): Plan: * Hold home PO Rx in the setting of SBO w/ NGT to suction. * Consider IV dosing of Rx if necessary. (3) Spastic bladder: Plan: * Restart Oxybutinin when able. (4) Osteoarthritis: Plan: * Home antiinflammatory Rx when able. * Should be well addressed w/ current pain meds. Admission and Anticipated Discharge Date Admission Date: March 17, 2022 Subjective Patient seen and evaluated at bedside today. She reports no abdominal pain. She has not had a bowel movement or passed gas. Clinically, the patient appears much improved from yesterday. She denies complaints of headache. She is tolerating her NG tube well today. Review of Systems Review of Systems: A complete 6 point review of systems was reviewed with the patient with pertinent positives and negatives as per history of present illness. All else were negative. Physical Exam Physical Exam: VITAL SIGNS - Vital signs and nursing notes were reviewed. GENERAL - 81-year-old female appearing her stated age who is in no acute distress. Communicates well with provider and answers questions appropriately. NOSE - NGT in place to the LEFT naris. Midline and without cyanosis. No epistaxis or purulent drainage noted. MOUTH/OROPHARYNX - Without perioral cyanosis. Buccal mucosa pink and dry. LUNGS - Chest wall symmetric without accessory muscle use, intercostals retractions, or central cyanosis. Normal vesicular breath sounds CTA B/L. No wheezes, rales, or rhonchi appreciated. CARDIAC - RRR with S1/S2. No murmur, rubs, or gallops appreciated. ABDOMEN - Abdominal contour flat without pulsations or visible masses. No BS appreciated. No TTP throughout. EXTREMITIES - No pretibial edema present. +3/5 radial and dorsalis pedis pulses palpated throughout. Results & Data ([facility]) Vital Signs (Past 12 Hours) Vital Signs Temp Pulse Resp BP Pulse Ox O2 Del Method 03/19/22 07:42 36.7 C 59 L 16 130/76 97 Room Air PG Care Time/CCT Total # of Minutes Spent Total Time Spent with Patient: Total time spent is greater than 50% in coordination of care (as documented) at patient's floor/unit and/or counseling patient: Coding Level of Care Code 85028 SUB INP/OBS CARE 3/50MIN Diagnoses SBO (small bowel obstruction) K56.609 HTN (hypertension) I10 Spastic bladder N32.89 Osteoarthritis M19.90 Time Spent (min) 32
[2022-03-19 09:55] LABS: BUN Creatinine Ratio 44.4 (10-20); Calcium 9.3 mg/dl (8.5-10.1); Creatinine Clr Calc Pharmacy 85.7 ml/min; Est GFR (African American) 110.5 ml/min; Est GFR (Non-African American) 95.3 ml/min; Magnesium 1.9 mg/dl (1.7-2.4); Phosphorus 2.1 mg/dl (2.5-4.9); Potassium 3.7 mmol/L (3.5-5.1)
[2022-03-19] MEDS: cefTRIAXone SODIUM 1,000 MG in DEXTROSE 5% AD-VAN 50 ML IV SCH (09:59)
[2022-03-19] MEDS ORDERED: POTASSIUM PHOS 3 MMOL/1 ML INFUSION IV STA (10:49)
[2022-03-19] MEDS ORDERED: POTASSIUM PHOSPHATE 15 MMOL in SODIUM CHLORIDE 0.9% 250 ML IV ONE (11:00)
[2022-03-20] MEDS: ACETAMINOPHEN 1000 MG/100 ML IV IV SCH ×3 (01:14→21:05)
[2022-03-20] MEDS: SODIUM CHLORIDE 0.9% 500 ML IV SCH (01:14)
[2022-03-20] MEDS ORDERED: SODIUM CHLORIDE 0.9% 1000ML 1,000 ML IV SCH (04:00)
--- NOTE | 2022-03-20 05:39 | Electrocardiogram Report ---
Test Reason : Blood Pressure : / mmHG Vent. Rate : 078 BPM Atrial Rate : 078 BPM P-R Int : 152 ms QRS Dur : 122 ms QT Int : 424 ms P-R-T Axes : 013 -22 114 degrees QTc Int : 483 ms Normal sinus rhythm Left bundle branch block Abnormal ECG No previous ECGs available Confirmed by Elroy Edwards ([id number]) on 03/20/2022 5:39:25 AM Referred By: REFERRED SELF Confirmed By:Elroy Edwards
[2022-03-20 07:20] LABS: Basophils # (auto) 0.06 K/uL (0-0.2); Basophils % (auto) 0.7 %; Eosinophils # (auto) 0.21 K/uL (0-0.50); Eosinophils % (auto) 2.5 %; Hematocrit (blood only) 38.9 % (34.1-44.9); Hemoglobin 12.9 g/dl (12.0-16.0); Immature Granulocytes # (auto) 0.06 K/uL (0.00-0.02); Immature Granulocytes % (auto) 0.7 %; Lymphocytes # (auto) 1.81 K/uL (1.2-3.4); Lymphocytes % (auto) 21.6 %; Mean Corpuscular Hgb Conc 33.2 g/dL (32.0-36.0); Mean Corpuscular Volume 102.6 fL (80.0-100.0); Mean Platelet Volume 10.6 fL (9.4-12.3); Monocytes # (auto) 0.79 K/uL (0.24-0.82); Monocytes % (auto) 9.4 %; Neutrophils # (auto) 5.45 K/uL (1.4-6.5); Neutrophils % (auto) 65.1 %; Platelet Count 254 K/uL (130-400); RDW Coefficient of Variation 12.8 % (11.5-14.5); RDW Standard Deviation 48.4 fL (36.4-46.3); Red Blood Count 3.79 M/uL (3.93-5.22); White Blood Count 8.38 K/ul (4.8-10.8)
[2022-03-20 07:50] LABS: Calcium 8.4 mg/dl (8.5-10.1); Magnesium 1.6 mg/dl (1.7-2.4); Potassium 3.6 mmol/L (3.5-5.1)
[2022-03-20 09:30] LABS: Creatinine Clr Calc Pharmacy 96.4 ml/min; Est GFR (African American) 114.8 ml/min; Est GFR (Non-African American) 99.1 ml/min; Phosphorus 2.6 mg/dl (2.5-4.9)
[2022-03-20] MEDS ORDERED: GLUCAGON FOR INJ 1 MG VIAL SQ PRN (09:51)
[2022-03-20] MEDS ORDERED: GLUCOSE 10 TAB/TUBE PO PRN (09:51)
[2022-03-20] MEDS ORDERED: DEXTROSE 50% 50 ML SYRINGE IV PRN (09:51)
[2022-03-20] MEDS ORDERED: CARBOHYDRATES FOR HYPOGLYCEMIA PO PRN (09:51)
[2022-03-20] MEDS ORDERED: GLUCOSE 40% GEL 15 GM TUBE PO PRN (09:51)
[2022-03-20] MEDS: cefTRIAXone SODIUM 1,000 MG in DEXTROSE 5% AD-VAN 50 ML IV SCH (10:37)
[2022-03-20] MEDS ORDERED: D5W AND NSS 1,000 ML IV SCH (10:45)
[2022-03-20] MEDS: amLODIPine BESYLATE 5 MG TAB PO SCH (11:48)
[2022-03-20] MEDS: OXYBUTYNIN CHLORIDE XL 5 MG TABCR PO SCH (11:49)
[2022-03-20] MEDS: ESCITALOPRAM OXALATE 10 MG TAB PO SCH (11:49)
--- NOTE | 2022-03-20 14:05 | Surgery Progress Note ---
Date of Service March 20, 2022 Assessment & Plan (1) SBO (small bowel obstruction): Plan: SBFT results still pending if no bowel fx by tomorrow AM will likely need exploratory laparotomy. discussed this with her and she agrees. will repeat KUB tomorrow prior to making decision regarding surgical intervention. Admission and Anticipated Discharge Date Admission Date: March 17, 2022 Subjective pt seen. no new complaints. has urge to have a bowel movment but none yet. denies pain or nausea. Physical Exam Constitutional: WD/WN, vitals as above no acute distress and not ill appearing Eyes: PERRL, conjunctivae normal, anicteric sclerae EOM intact bilaterally ENMT: external ear and nose normal, oropharynx normal Ears: no hearing impairment Neck: trachea midline, no thyromegaly Respiratory: normal respiratory effort; no respiratory distress and does not use accessory muscles Cardiovascular: Rate/Rhythm: regular rate and regular rhythm Gastrointestinal (Abdomen): soft. non-tender. non-distended. +bs's. Skin: no rashes, warm and dry Psychiatric: Orientation: alert, oriented x 3 and cooperative Results & Data ([facility]) Vital Signs (Past 12 Hours) Vital Signs Temp Pulse Resp BP Pulse Ox O2 Del Method 03/20/22 07:04 36.7 C 69 16 132/76 96 Room Air PG Care Time/CCT Total # of Minutes Spent Total Time Spent with Patient: Total time spent is greater than 50% in coordination of care (as documented) at patient's floor/unit and/or counseling patient: Coding Level of Care Code 95718 SUB INP/OBS CARE 2/35MIN Diagnoses SBO (small bowel obstruction) K56.609
--- NOTE | 2022-03-20 15:28 | Fluoroscopy Report ---
SMALL BOWEL FOLLOW-THROUGH CLINICAL HISTORY: Small bowel obstruction. COMPARISON STUDY: Abdominal CT dated 03/17/2022 TECHNIQUE: An abdominal digital production artist radiograph was performed. Approximately 600 cc of diluted Optiray 300 w as then injected through the patient's enteric tube to perform a small bowel follow-through. 6 additi onal overhead radiographs were obtained. No spot imaging was performed. FINDINGS: The abdominal digital production artist radiograph shows enteric tube projecting below the diaphragm over the gastric fun dus. There is evidence of persistent small bowel obstruction. Fecal retention is noted in the colon. No evidence of intracranial free air seen on this supine image. There are no abnormal abdominal calci fications. The skeletal structures are osteopenic and appear intact. There is lumbosacral spondylosis . On the small bowel follow-through, there is distention of the proximal small bowel loops which measur e up to 4.4 cm in diameter. There is delayed transit time with contrast identified in the colon at 3 hour. The transition point is questioned in the mid pelvis. This is better assessed by CT. There is n o evidence of mass lesion. IMPRESSION: 1. There is evidence of persistent small bowel obstruction. 2. Obstruction is incomplete, as enteric contrast reaches the colon. 3. A transition point is questioned in the pelvis. This was better assessed on the recent CT scan. ACT 112: Negative or not required by law. Electronically signed by: Remington Jauregui M.D. 03/20/2022 3:26 PM
--- NOTE | 2022-03-20 15:43 | Progress Note ---
Date of Service March 20, 2022 Assessment & Plan (1) SBO (small bowel obstruction): Plan: 81yo female with a history of HTN, spastic bladder, hiatal hernia, shoulder OA, and dementia presents with a few-day history of abdominal pain, nausea, vomiting, and diarrhea. * Patient presents with a one-week history of abdominal pain, nausea, vomiting, and diarrhea * CT a/p: multiple dilated loops of small bowel with a well-defined transition point near the surgical anastomosis site and decompressed distal small bowel and colon; findings are compatible with a high-grade small bowel obstruction; no evidence of bowel ischemia. * NGT remains w/ ongoing bilious output. * Abd soft and non-tender to palpation. Very slight bowel sounds noted on exam today. * SBFT performed today. Pending results. * Remains NPO * Contine w/ current pain regimen. Try and minimize utilization of narcotics in the SBO patient. * Zofran prn nausea * Appreciate general surgery's ongoing management. * Decision tomorrow for ??exploratory laparotomy. (2) HTN (hypertension): Plan: * Hold home PO Rx in the setting of SBO w/ NGT to suction. * Consider IV dosing of Rx if necessary. (3) Hypoglycemia: Plan: * Likely in the setting of NPO status. * Initially received IV dextrose. * Will add hypoglycemia coverage. * Will add dextrose containing IVF at the same rate. (4) Spastic bladder: Plan: * Restart Oxybutinin when able. (5) Osteoarthritis: Plan: * Home antiinflammatory Rx when able. * Should be well addressed w/ current pain meds. Admission and Anticipated Discharge Date Admission Date: March 17, 2022 Subjective Patient seen and evaluated at bedside. She had just returned from her small bowel follow-through study. She reports that she feels as though she needs to move her bowels but cannot. She denies complaints of pain otherwise. She reports feeling well and is tolerating her NG tube at this time. Review of Systems Review of Systems: A complete 6 point review of systems was reviewed with the patient with pertinent positives and negatives as per history of present illness. All else were negative. Physical Exam Physical Exam: VITAL SIGNS - Vital signs and nursing notes were reviewed. GENERAL - 81-year-old female appearing her stated age who is in no acute distress. Communicates well with provider and answers questions appropriately. NOSE - NGT in place. MOUTH/OROPHARYNX - Without perioral cyanosis. Buccal mucosa pink and dry. LUNGS - Chest wall symmetric without accessory muscle use, intercostals retractions, or central cyanosis. Normal vesicular breath sounds CTA B/L. No wheezes, rales, or rhonchi appreciated. CARDIAC - RRR with S1/S2. No murmur, rubs, or gallops appreciated. ABDOMEN - Abdominal contour flat without pulsations or visible masses. No BS appreciated. No TTP throughout. EXTREMITIES - No pretibial edema present. +3/5 radial and dorsalis pedis pulses palpated throughout. Results & Data ([facility]) Vital Signs (Past 12 Hours) Vital Signs Temp Pulse Resp BP Pulse Ox O2 Del Method 03/20/22 14:47 36.5 C 74 16 127/72 98 Room Air 03/20/22 07:04 36.7 C 69 16 132/76 96 Room Air PG Care Time/CCT Total # of Minutes Spent Total Time Spent with Patient: Total time spent is greater than 50% in coordination of care (as documented) at patient's floor/unit and/or counseling patient: Coding Level of Care Code 80091 SUB INP/OBS CARE 3/50MIN Diagnoses SBO (small bowel obstruction) K56.609 HTN (hypertension) I10 Hypoglycemia E16.2 Spastic bladder N32.89 Osteoarthritis M19.90 Time Spent (min) 35
[2022-03-20] MEDS: D10 NSS IV SCH (16:24)
[2022-03-20] MEDS ORDERED: MAGNESIUM SULFATE / D5W 1 GM/100 ML BAG IV ONE (16:45)
[2022-03-21] MEDS: MoRPHine SULFATE 2 MG/ML CARP IV PRN (02:04)
[2022-03-21] MEDS: ACETAMINOPHEN 1,000 MG/100 ML VIAL IV PRN (04:18)
[2022-03-21 07:59] LABS: Basophils # (auto) 0.09 K/uL (0-0.2); Basophils % (auto) 0.8 %; Eosinophils # (auto) 0.26 K/uL (0-0.50); Eosinophils % (auto) 2.3 %; Hematocrit (blood only) 44.8 % (34.1-44.9); Hemoglobin 15.2 g/dl (12.0-16.0); Immature Granulocytes # (auto) 0.07 K/uL (0.00-0.02); Immature Granulocytes % (auto) 0.6 %; Lymphocytes # (auto) 2.01 K/uL (1.2-3.4); Lymphocytes % (auto) 18.1 %; Mean Corpuscular Hemoglobin 33.3 pg (25.0-34.0); Mean Corpuscular Hgb Conc 33.9 g/dL (32.0-36.0); Mean Platelet Volume 10.2 fL (9.4-12.3); Monocytes # (auto) 1.14 K/uL (0.24-0.82); Monocytes % (auto) 10.3 %; Neutrophils # (auto) 7.52 K/uL (1.4-6.5); Neutrophils % (auto) 67.9 %; Platelet Count 328 K/uL (130-400); RDW Coefficient of Variation 12.5 % (11.5-14.5); Red Blood Count 4.57 M/uL (3.93-5.22); White Blood Count 11.09 K/ul (4.8-10.8)
--- NOTE | 2022-03-21 08:06 | Anesthesiology Consultation ---
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 History Surgery Operation Date: 03/21/22 12:20 Proposed Procedures p Exploratory Laparotomy, Surgery As Needed - Harsh Orozco DO Height/Weight Height: 5 ft 3.5 in Weight: 54.7 kg Allergies Allergy/AdvReac Type Severity Reaction Status Date / Time No Known Allergies Allergy Unverified 03/17/22 21:28 Medications Home Medications Medication Instructions Recorded Confirmed Last Taken amlodipine 2.5 mg tablet 2.5 mg PO QAM 03/17/22 03/17/22 03/17/22 diclofenac sodium 75 mg 75 mg PO BID PRN arthritis 03/17/22 03/17/22 Unknown tablet,delayed release escitalopram oxalate 5 mg tablet 5 mg PO QAM 03/17/22 03/17/22 03/17/22 oxybutynin chloride 15 mg 30 mg PO QAM 03/17/22 03/17/22 03/17/22 tablet,extended release 24 hr Active Medications Generic Name Dose Route Start Last Admin Trade Name Freq PRN Reason Stop Dose Admin Amlodipine Besylate 2.5 mg 03/18/22 09:00 03/20/22 11:48 Amlodipine Besylate 5 Mg Tab PO 04/17/22 08:59 Not Given QAM MK Dextrose 25 - 50 ml 03/20/22 09:51 03/20/22 10:01 Dextrose 50% 50 Ml Syringe IV 04/19/22 09:50 50 ml UD PRN Administration Hypoglycemia Protocol Protocol Escitalopram Oxalate 5 mg 03/18/22 09:00 03/20/22 11:49 Escitalopram Oxalate 10 Mg Tab PO 04/17/22 08:59 Not Given QAM MK Ceftriaxone Sodium 1,000 mg/ 50 mls @ 100 mls/hr 03/18/22 10:00 03/20/22 11:56 Dextrose IV 03/23/22 09:59 Infused Q24H MK Infusion Protocol Acetaminophen 1,000 mg in 100 mls @ 400 mls/hr 03/19/22 08:09 03/21/22 04:36 Ofirmev IV 03/22/22 08:08 Infused Q8H PRN Infusion Headache Sodium Chloride 1,000 mls @ 125 mls/hr 03/20/22 04:00 03/20/22 12:54 Nss 1000ml IV 04/19/22 03:59 Infused .Q8H MK Infusion Sodium Chloride 155 meq/ 1,062 mls @ 100 mls/hr 03/20/22 16:15 03/20/22 16:24 Dextrose IV 04/19/22 16:14 100 mls/hr .[id number] MK Administration Morphine Sulfate 1 mg 03/17/22 22:29 03/21/22 02:04 Morphine Sulfate 2 Mg/Ml Carp IV 03/31/22 22:28 1 mg Q2H PRN Administration Severe pain (7+10) Oxybutynin Chloride 30 mg 03/18/22 09:00 03/20/22 11:49 Oxybutynin Chloride Xl 5 Mg Tabcr PO 04/17/22 08:59 Not Given QAM MK Past Medical History Medical History HTN (hypertension) Osteoarthritis Past Family History Family History Other Family history non-contributory Past Surgical History Surgical History H/O hernia repair Social History Smoking Status: Former smoker tobacco type: cigarettes Do You Dip or Chew Tobacco: No Hx Alcohol Use: No Hx Substance Use: No substance use type: does not use Physical Exam Vital Signs Last Vital Signs Temp 97.7 F 03/21/22 07:55 Pulse 81 03/21/22 07:55 Resp 16 03/21/22 07:55 BP 163/88 H 03/21/22 07:55 Pulse Ox 96 03/20/22 22:08 O2 Del Method 03/20/22 22:08 Testing Laboratory Results 03/21/22 07:19 Urine Color Yellow 03/18/22 01:30 Urine Appearance Cloudy (Clear) A 03/18/22 01:30 Urine pH 6.0 (4.5-7.5) 03/18/22 01:30 Ur Specific Monon > 1.045 (1.000-1.030) H 03/18/22 01:30 Urine Protein Trace (Negative) H 03/18/22 01:30 Urine Glucose (UA) Negative (Negative) 03/18/22 01:30 Urine Ketones Trace (Negative) H 03/18/22 01:30 Urine Nitrite Positive (Negative) A 03/18/22 01:30 Ur Leukocyte Esterase Negative (Negative) 03/18/22 01:30 Urine WBC (Auto) 5-10 /hpf (0-5) H 03/18/22 01:30 Urine RBC (Auto) 0-4 /hpf (0-4) 03/18/22 01:30 U Hyaline Cast (Auto) 1-5 /lpf (0-5) 03/18/22 01:30 U Epithel Cells (Auto) 10-20 /lpf (0-5) H 03/18/22 01:30 Urine Bacteria (Auto) 4+ (Negative) H 03/18/22 01:30 03/18/22 01:30 Urine Culture - Final Urine,Clean Catch Klebsiella pneumoniae Escherichia coli 03/21/22 03/21/22 03/21/22 06:06 03:58 01:57 POC Glucose 129 H 137 H 126 H 03/21/22 03/20/22 03/20/22 00:07 22:04 20:44 POC Glucose 117 H 81 66 L* Electrocardiogram Date: 03/17/22 Findings: + NSR @ (78 bpm) and + LBBB Chest X-Ray Date: 03/17/22 IMPRESSION: 1. An enteric tube has been placed. The tip projects over the distal esophagus below the alfonso. This should be advanced. 2. Emphysematous change with no acute cardiopulmonary abnormality identified. 3. Enlargement of the left hilum may represent an enlarged pulmonary artery. Correlation with a contrast enhanced chest CT is recommended to exclude hilar lesion or lymphadenopathy.
[2022-03-21 09:27] LABS: BUN Creatinine Ratio 11.6 (10-20); Calcium 9.4 mg/dl (8.5-10.1); Creatinine Clr Calc Pharmacy 89.7 ml/min; Est GFR (African American) 112.1 ml/min; Est GFR (Non-African American) 96.7 ml/min; Magnesium 1.7 mg/dl (1.7-2.4); Phosphorus 1.8 mg/dl (2.5-4.9)
--- NOTE | 2022-03-21 10:01 | Surgery Progress Note ---
Date of Service March 21, 2022 Assessment & Plan (1) SBO (small bowel obstruction): Plan: Patient here with SBO SBFT obtained yesterday- showed signs concern for SBO, however contrast did reach the colon She has since been feeling better and started to have + bowel function KUB obtained today and read is pending, but appears contrast in colon Abdomen soft, non distended, non tender Will plan on d/c NGT and start clear liquids Patient seen. Feeling much better. Multiple bowel movements. No pain or nausea. We will DC her NG tube and initiate clear liquids. And slowly advance. Dr. Andersen covering for the weekend Admission and Anticipated Discharge Date Admission Date: March 17, 2022 Subjective Patient feeling well. She denies abdominal pain/nausea/vomiting. Is passing BMs. Physical Exam Physical Exam: awake/alert, no distress Respiratory: normal respiratory effort Gastrointestinal (Abdomen): Inspection/Auscultation: abdomen not distended Percussion/Palpation: abdomen soft; abdomen nontender Results & Data ([facility]) Vital Signs (Past 12 Hours) Vital Signs Temp Pulse Pulse Resp BP Pulse Ox O2 Del Method 03/21/22 07:55 36.5 C 81 16 163/88 H 95 Room Air 03/21/22 02:32 65 161/75 H 03/20/22 22:08 36.5 C 86 16 96 Room Air PG Care Time/CCT Total # of Minutes Spent Total Time Spent with Patient: Total time spent is greater than 50% in coordination of care (as documented) at patient's floor/unit and/or counseling patient: Coding Level of Care Code 29816 SUB INP/OBS CARE 2/35MIN Diagnoses SBO (small bowel obstruction) K56.609
[2022-03-21] MEDS: D10 NSS IV SCH ×2 (10:13→17:31)
[2022-03-21] MEDS: ESCITALOPRAM OXALATE 10 MG TAB PO SCH (10:15)
[2022-03-21] MEDS: amLODIPine BESYLATE 5 MG TAB PO SCH (10:15)
[2022-03-21] MEDS: OXYBUTYNIN CHLORIDE XL 5 MG TABCR PO SCH (10:15)
[2022-03-21] MEDS: cefTRIAXone SODIUM 1,000 MG in DEXTROSE 5% AD-VAN 50 ML IV SCH (10:19)
[2022-03-21] MEDS: DICLOFENAC SOD 1% GEL 100 GM TUBE EXT SCH ×4 (11:21→21:37)
--- NOTE | 2022-03-21 15:15 | XRay Report ---
XR KUB/Abdomen 1 view CLINICAL HISTORY: sbo TECHNIQUE: 1 view of the abdomen was obtained. Comparison: Comparison is made to abdomen radiograph 03/20/2022 FINDINGS: Enteric tube terminates in the stomach. Degenerative changes are seen in the visualized skeleton. The bowel gas pattern is nonobstructive. Small stool burden is seen. Retained contrast is seen in the co michael. IMPRESSION: Nonobstructive bowel gas pattern. ACT 112: Negative or not required by law. Electronically signed by: Darren Coy M.D. 03/21/2022 2:43 PM
[2022-03-21] MEDS ORDERED: MAGNESIUM SULFATE / D5W 1 GM/100 ML BAG IV ONE (15:51)
--- NOTE | 2022-03-21 15:51 | Hospitalist Progress Note ---
Date of Service March 21, 2022 Assessment & Plan (1) SBO (small bowel obstruction): Plan: 81yo female with a history of HTN, spastic bladder, hiatal hernia, shoulder OA, and dementia presents with a few-day history of abdominal pain, nausea, vomiting, and diarrhea. * Acute on chronic partial small bowel obstruction * patient presents with a one-week history of abdominal pain, nausea, vomiting, and diarrhea * CT a/p: multiple dilated loops of small bowel with a well-defined transition point near the surgical anastomosis site and decompressed distal small bowel and colon; findings are compatible with a high-grade small bowel obstruction; no evidence of bowel ischemia. * Patient had bowel movement small bowel follow-through shows contrast reaching colon surgery is pleased with this result and advancing diet discontinuing NG tube * Contine w/ current as needed parenteral pain regimen. * Zofran prn nausea * Appreciate general surgery's ongoing management. * * Replete potassium offer additional magnesium recheck labs in 1 day ordered laboratory testing 03/22/2022 (2) HTN (hypertension): Plan: * Chronic and stable although holding home medications blood pressure has not required additional treatment (3) Hypoglycemia: Plan: * Acute and self-limited * persistent hypoglycemia likely due to n.p.o. status * Subsequently her hypoglycemia has resolved (4) Spastic bladder: Plan: * Chronic stable, restart Oxybutinin when able. (5) Osteoarthritis: Plan: * Home antiinflammatory Rx when able. * Pain is not an issue on current regiment Admission and Anticipated Discharge Date Admission Date: March 17, 2022 Subjective Patient has good results of small bowel follow-through. Did have bowel movements. Surgery is not planning on intervention. Attempts advance diet and will likely eventually remove the NG tube Physical Exam Physical Exam: Physical exam finds her awake alert appropriate. Her abdomen exam had hypoactive bowel sounds soft no focal areas of tenderness or guarding Results & Data Results & Data ([facility]) Vital Signs (Past 12 Hours) Vital Signs Temp Pulse Resp BP Pulse Ox O2 Del Method 03/21/22 14:54 97.7 F 74 16 138/83 99 Room Air 03/21/22 07:55 97.7 F 81 16 163/88 H 95 Room Air Diagnostic Findings Review of CBC showing leukocytosis which is slight Electrolyte review shows hypokalemia and low normal magnesium otherwise no significant electrolyte abnormalities PG Care Time/CCT Total # of Minutes Spent Total Time Spent with Patient: Total time spent is greater than 50% in coordination of care (as documented) at patient's floor/unit and/or counseling patient: Coding Level of Care Code 37125 SUB INP/OBS CARE 2/35MIN Diagnoses SBO (small bowel obstruction) K56.609 HTN (hypertension) I10 Hypoglycemia E16.2 Spastic bladder N32.89 Osteoarthritis M19.90
[2022-03-21] MEDS: POTASSIUM CHLORIDE / WTR 10 MEQ/100 ML PLCT IV SCH ×3 (17:45→20:00)
[2022-03-21] MEDS: POTASSIUM CHLORIDE 20 MEQ in LACTATED RINGER'S 1,000 ML IV SCH (21:36)
[2022-03-22] MEDS: POTASSIUM CHLORIDE 20 MEQ in LACTATED RINGER'S 1,000 ML IV SCH ×3 (01:53→19:19)
--- NOTE | 2022-03-22 08:02 | Hospitalist Progress Note ---
Date of Service March 22, 2022 Assessment & Plan (1) SBO (small bowel obstruction): Plan: 81yo female with a history of HTN, spastic bladder, hiatal hernia, shoulder OA, and dementia presents with a few-day history of abdominal pain, nausea, vomiting, and diarrhea. * Acute on chronic partial small bowel obstruction possibly resolving * * CT a/p: multiple dilated loops of small bowel with a well-defined transition point near the surgical anastomosis site and decompressed distal small bowel and colon; findings are compatible with a high-grade small bowel obstruction; no evidence of bowel ischemia. * Patient had bowel movement small bowel follow-through shows contrast reaching colon surgery is pleased with this result and advancing diet discontinuing NG tube * Continue w/ current as needed parenteral pain regimen. * Zofran prn nausea * Appreciate general surgery's ongoing management. Advance diet slowly * * Reviewed chemistry panel both potassium and magnesium are replete but low normal will recheck on 121 * * Given possible mild confusion check urine analysis this is abnormal and may be a indication she may have a UTI with encephalopathy awaiting culture continues on ceftriaxone (2) HTN (hypertension): Plan: * Chronic and stable although holding home medications blood pressure has not required additional treatment (3) Hypoglycemia: Plan: * Acute and self-limited resolved blood glucose 104 on 03/22/2022 * persistent hypoglycemia likely due to n.p.o. status * Subsequently her hypoglycemia has resolved (4) Spastic bladder: Plan: * Chronic stable, restart Oxybutinin when able. (5) Osteoarthritis: Plan: * Home antiinflammatory Rx when able. * Pain is not an issue on current regiment Admission and Anticipated Discharge Date Admission Date: March 17, 2022 Subjective Patiently appears mildly confused but on confrontational testing she seems to past most questions. She is still having some loose bowel movements she became nauseous after trying to eat in the morning but surgery was happy that her bowel movements had occurred Reviewing surgery's notes today states she continues to them prove recommending starting liquid diets no evidence of need for further testing or invasive procedure Physical Exam Physical Exam: She is hypoactive bowel sounds she is soft she is nontender no acute abdomen Cardiac exam is regular lungs are clear Results & Data Results & Data ([facility]) Vital Signs (Past 12 Hours) Vital Signs Temp Pulse Resp BP BP Pulse Ox O2 Del Method 03/22/22 07:47 98.8 F 80 18 124/80 98 Room Air 03/21/22 21:37 Room Air 03/21/22 21:29 97.5 F L 76 14 93/51 L 96 Room Air PG Care Time/CCT Total # of Minutes Spent Total Time Spent with Patient: Total time spent is greater than 50% in coordination of care (as documented) at patient's floor/unit and/or counseling patient: Coding Level of Care Code 56957 SUB INP/OBS CARE 2/35MIN Diagnoses SBO (small bowel obstruction) K56.609 HTN (hypertension) I10 Hypoglycemia E16.2 Spastic bladder N32.89 Osteoarthritis M19.90
[2022-03-22 08:34] LABS: Magnesium 1.8 mg/dl (1.7-2.4); Potassium 3.5 mmol/L (3.5-5.1)
[2022-03-22 08:40] LABS: BUN Creatinine Ratio 11.1 (10-20); Creatinine Clr Calc Pharmacy 85.7 ml/min; Est GFR (African American) 110.5 ml/min; Est GFR (Non-African American) 95.3 ml/min
[2022-03-22 09:59] LABS: Albumin Level 3.2 gm/dl (3.4-5.0); Bilirubin Direct 0.1 mg/dl (0-0.2); Bilirubin,Total 0.4 mg/dl (0.2-1.0); Total Protein 5.9 gm/dl (6.0-8.3)
[2022-03-22] MEDS: cefTRIAXone SODIUM 1,000 MG in DEXTROSE 5% AD-VAN 50 ML IV SCH (10:10)
[2022-03-22] MEDS: ESCITALOPRAM OXALATE 10 MG TAB PO SCH (10:11)
[2022-03-22] MEDS: DICLOFENAC SOD 1% GEL 100 GM TUBE EXT SCH ×4 (10:11→20:05)
[2022-03-22] MEDS: OXYBUTYNIN CHLORIDE XL 5 MG TABCR PO SCH (10:12)
[2022-03-22] MEDS: amLODIPine BESYLATE 5 MG TAB PO SCH (10:13)
[2022-03-22 12:42] LABS: Appearance Urine Clear (Clear); Bacteria Urine Automated Negative (Negative); Bilirubin Urine Negative (Negative); Blood Urine Negative (Negative); Color Urine Yellow; Glucose Urine UA Negative (Negative); Ketones Urine Trace (Negative); Leukocyte Esterase Urine Trace (Negative); Nitrite Urine Negative (Negative); Protein Urine Trace (Negative); RBC Urine Automated 0-4 /hpf (0-4); Specific Gravity Urine 1.016 (1.000-1.030); Urobilinogen Urine Negative (Negative)
--- NOTE | 2022-03-22 13:35 | Surgery Progress Note ---
Date of Service March 22, 2022 Assessment & Plan (1) SBO (small bowel obstruction): Plan: Liyah continues to improve. She is nervous to start liquids as she had an episode of vomiting yesterday morning. She was encouraged to start slow and see how she tolerates. +passing flatus, +BMs Continue current management. Patient seen and examined with Dr. Andersen. Admission and Anticipated Discharge Date Admission Date: March 17, 2022 Supervising Physician Co-Signing Physician Notes Patient seen examined, agree with above. Mid with SBO, appears to be resolving. We will advance diet as tolerated. Subjective Patient is resting in bed. She states that she is nervous to try clear liquids because she had an episode of vomiting yesterday. Per nursing, she did tolerate a popsicle earlier today. Review of Systems Review of Systems: All systems reviewed & are unremarkable except as noted in HPI & below Physical Exam Physical Exam: awake/alert, no distress Respiratory: normal respiratory effort Gastrointestinal (Abdomen): Inspection/Auscultation: abdomen not distended Percussion/Palpation: abdomen soft; abdomen nontender Results & Data ([facility]) Vital Signs (Past 12 Hours) Vital Signs Temp Pulse Resp BP Pulse Ox O2 Del Method 03/22/22 07:47 37.1 C 80 18 124/80 98 Room Air PG Care Time/CCT Total # of Minutes Spent Total Time Spent with Patient: Total time spent is greater than 50% in coordination of care (as documented) at patient's floor/unit and/or counseling patient: Coding Level of Care Code 22731 SUB INP/OBS CARE 2/35MIN Diagnoses SBO (small bowel obstruction) K56.609
--- NOTE | 2022-03-22 16:25 | Hospitalist Progress Note ---
Date of Service March 22, 2022 Assessment & Plan (1) SBO (small bowel obstruction): Plan: 81yo female with a history of HTN, spastic bladder, hiatal hernia, shoulder OA, and dementia presents with a few-day history of abdominal pain, nausea, vomiting, and diarrhea. * Acute on chronic partial small bowel obstruction possibly resolving * * CT a/p: multiple dilated loops of small bowel with a well-defined transition point near the surgical anastomosis site and decompressed distal small bowel and colon; findings are compatible with a high-grade small bowel obstruction; no evidence of bowel ischemia. * Patient had bowel movement small bowel follow-through shows contrast reaching colon surgery is pleased with this result and advancing diet discontinuing NG tube * Continue w/ current as needed parenteral pain regimen. * Zofran prn nausea * Appreciate general surgery's ongoing management. Advance diet slowly * * Reviewed chemistry panel both potassium and magnesium are replete but low normal will recheck on 121 * * Given possible mild confusion patient has urinary tract infection present on admission with both Klebsiella pneumonia and E. coli both sensitive to ceftriaxone we will continue this medication may be responsible for mild metabolic encephalopathy (2) HTN (hypertension): Plan: * Chronic and stable although holding home medications blood pressure has not required additional treatment (3) Hypoglycemia: Plan: * Acute and self-limited resolved blood glucose 104 on 03/22/2022 * persistent hypoglycemia likely due to n.p.o. status * Subsequently her hypoglycemia has resolved (4) Spastic bladder: Plan: * Chronic stable, restart Oxybutinin when able. * Gram-negative urinary tract infection present on admission continue treat with antibiotics (5) Osteoarthritis: Plan: * Home antiinflammatory Rx when able. * Pain is not an issue on current regiment Admission and Anticipated Discharge Date Admission Date: March 17, 2022 Results & Data Results & Data ([facility]) Vital Signs (Past 12 Hours) Vital Signs Temp Pulse Resp BP Pulse Ox O2 Del Method 03/22/22 15:39 98.1 F 77 18 119/82 93 Room Air 03/22/22 07:47 98.8 F 80 18 124/80 98 Room Air PG Care Time/CCT Total # of Minutes Spent Total Time Spent with Patient: Total time spent is greater than 50% in coordination of care (as documented) at patient's floor/unit and/or counseling patient: Coding Level of Care Code None Diagnoses SBO (small bowel obstruction) K56.609 HTN (hypertension) I10 Hypoglycemia E16.2 Spastic bladder N32.89 Osteoarthritis M19.90
[2022-03-22] MEDS: MoRPHine SULFATE 2 MG/ML CARP IV PRN (22:23)
[2022-03-23] MEDS: POTASSIUM CHLORIDE 20 MEQ in LACTATED RINGER'S 1,000 ML IV SCH (05:12)
[2022-03-23 08:16] LABS: Calcium 8.8 mg/dl (8.5-10.1); Magnesium 1.6 mg/dl (1.7-2.4); Potassium 3.7 mmol/L (3.5-5.1)
[2022-03-23 08:22] LABS: BUN Creatinine Ratio 10.4 (10-20); Creatinine Clr Calc Pharmacy 80.3 ml/min; Est GFR (African American) 108.1 ml/min; Est GFR (Non-African American) 93.3 ml/min
--- NOTE | 2022-03-23 08:51 | XRay Report ---
KUB HISTORY: Acute abdominal pain with reported small bowel obstruction eval progressio of sbo COMPARISON: KUB March 21, 2022, CT 03/17/2022 FINDINGS: The enteric tube has been removed in the interval. Air is noted within the large and small bowel. Mild residual contrast within the rectosigmoid. Progressive evacuation of the large bowel ente dane contrast. Surgical clips of the pelvis. No renal calculi. No ureteral calculi. No pneumoperitone um or pneumatosis. No fracture. IMPRESSION: 1. Interval removal of the enteric tube. 2. Air-filled loops of large and small bowel appear stable from yesterday's exam with progressive mildred cuation of the large bowel enteric contrast. ACT 112: Negative or not required by law. The above report was generated using voice recognition software. It may contain grammatical, syntax o r spelling errors. Electronically signed by: John Chavira M.D. 03/23/2022 8:49 AM
[2022-03-23] MEDS: ESCITALOPRAM OXALATE 10 MG TAB PO SCH (09:02)
[2022-03-23] MEDS: amLODIPine BESYLATE 5 MG TAB PO SCH (09:02)
[2022-03-23] MEDS: OXYBUTYNIN CHLORIDE XL 5 MG TABCR PO SCH (09:02)
[2022-03-23] MEDS: DICLOFENAC SOD 1% GEL 100 GM TUBE EXT SCH ×2 (09:03→13:08)
--- NOTE | 2022-03-23 09:51 | Surgery Progress Note ---
Date of Service March 23, 2022 Assessment & Plan (1) SBO (small bowel obstruction): Plan: 03/23/22 Continues to improve. Would like to advance her diet to full liquids. Was reminded to continue to go slow with PO intake. +passing flatus, +BMs, denies abdominal pain. Patient seen and examined with Dr. Andersen. 03/22/22 Liyah continues to improve. She is nervous to start liquids as she had an episode of vomiting yesterday morning. She was encouraged to start slow and see how she tolerates. +passing flatus, +BMs Continue current management. Patient seen and examined with Dr. Andersen. Admission and Anticipated Discharge Date Admission Date: March 17, 2022 Supervising Physician Co-Signing Physician Notes Patient seen examined, agree with above. SBO, appears to be resolving. We will advance diet as tolerated. Subjective Liyah is doing well today. She is up eating her breakfast tray. She is tolerating clear liquid diet and is ready to move to full liquid diet. She denies abdominal pain. Is passing gas and moving her bowels. Physical Exam Physical Exam: awake/alert, no distress Respiratory: normal respiratory effort Gastrointestinal (Abdomen): Inspection/Auscultation: abdomen not distended Percussion/Palpation: abdomen soft; abdomen nontender Results & Data ([facility]) Vital Signs (Past 12 Hours) Vital Signs Temp Pulse Resp BP Pulse Ox O2 Del Method 03/23/22 07:17 36.9 C 52 L 16 99/53 L 97 Room Air PG Care Time/CCT Total # of Minutes Spent Total Time Spent with Patient: Total time spent is greater than 50% in coordination of care (as documented) at patient's floor/unit and/or counseling patient: Coding Level of Care Code 88356 SUB INP/OBS CARE 2/35MIN Diagnoses SBO (small bowel obstruction) K56.609
--- NOTE | 2022-03-23 16:26 | Discharge Summary ---
Date of Service March 23, 2022 Admission HPI Per Admitting Provider 81yo female with a history of HTN, hiatal hernia (s/p surgical repair four years ago), history of SBO (four years ago), spastic bladder, shoulder OA, and dementia presents with a few-day history of abdominal pain, nausea, vomiting, and diarrhea. Patient also reports poor PO intake and intermittent lightheadedness. Symptoms began gradually. Patient has not been able to tolerate much PO over the past 2-3 days. Patient denies fever, chills, CP, SOB, edema, dysuria, hematochezia, melena, numbness, tingling, weakness, or other symptoms. Denies recent illness and recent travel. Upon arrival, vitals were relatively unremarkable; BP controlled, no tachycardia, no tachypnea, patient afebrile, spO2 adequate on room air. Initial labs were notable for borderline-elevated calcium (10.2) and elevated AST (43); no leukocytosis, no anemia, platelets wnl, no additional electrolyte abnormalities, creatinine not elevated, LFTs otherwise wnl, Tbili not elevated, lipase wnl, covid PCR negative, respiratory biofire negative. In the ED, patient received NSS 1L bolus (x1), famotidine 20mg IV (x1), zofran, and acetaminophen. EKG: pending CT a/p: there are multiple dilated loops of small bowel with a well-defined transition point near the surgical anastomosis site and decompressed distal small bowel and colon; findings are compatible with a high-grade small bowel obstruction; no evidence of bowel ischemia is seen Surrogate decision-maker in case of an emergency: saroj Mike (cell:[phone]) Principal Diagnosis Small bowel obstruction resolved Urinary tract infection, present on admission, treated Discharge Exam Patient awake alert appropriate Abdominal examination is NABS soft nontender no guarding no rebound Discharge Data Allergies Allergy/AdvReac Type Severity Reaction Status Date / Time No Known Allergies Allergy Unverified 03/17/22 21:28 Consultations 03/17/22 21:31 ED Decision to Admit Stat 03/18/22 07:00 Consult General Surgery Routine 03/23/22 12:05 Consult LETYG bottom stainer Routine Procedures Performed Operation Date: 03/21/22 12:20 <No data on this case meets the specified criteria> Ordered Studies 03/17/22 18:01 CT abd pelvis IV con only Stat 03/20/22 07:00 SBFT Modified Swallow [FL small bowel follow through] Routine Hospital Course (1) SBO (small bowel obstruction): 81yo female with a history of HTN, spastic bladder, hiatal hernia, shoulder OA, and dementia presents with a few-day history of abdominal pain, nausea, vomiting, and diarrhea. * Acute on chronic partial small bowel obstruction resolved * * CT a/p: multiple dilated loops of small bowel with a well-defined transition point near the surgical anastomosis site and decompressed distal small bowel and colon; findings are compatible with a high-grade small bowel obstruction; no evidence of bowel ischemia. * Patient had bowel movement small bowel follow-through shows contrast reaching colon surgery is pleased with this result and advancing diet discontinuing NG tube * * Appreciate general surgery's ongoing management. Please with progress comfortable with discharge * (2) HTN (hypertension): * Chronic and stable although holding home medications blood pressure has not required additional treatment (3) Hypoglycemia: * Acute and self-limited resolved blood glucose 104 on 03/22/2022 * persistent hypoglycemia likely due to n.p.o. status * Subsequently her hypoglycemia has resolved (4) Spastic bladder: * Chronic stable, restart Oxybutinin * Gram-negative urinary tract infection present on admission completed 5 days of antibiotics (5) Osteoarthritis: * Home antiinflammatory Total Time Total Time Spent Total Time Spent (In Minutes): It required greater than 30 minutes to prepare this patient for discharge Discharge Plan Discharge Items Patient Disposition: Home - Self-Care Reason For Visit: SBO Discharge Diagnosis: small bowel obstruction resolved Activity: Resume your previous activity Non-emergency contact: Primary Care Provider Call non-emergency contact if: your symptoms worsen Follow-up/Referrals: Timothy Carey MD [Physician] - Diet: Low Fiber Addtl Attending Provider Instructions: low fiber diet for one week follow up with your primary care in one week, we will have our nurse navigator Bekah call you to help with this Pending Studies at Discharge: No Stand-Alone Forms: [facility], Smoking Cessation Medications and DC Order Prescriptions: Continued oxybutynin chloride 15 mg tablet extended release 24hr 30 mg PO QAM amlodipine 2.5 mg tablet 2.5 mg PO QAM diclofenac sodium 75 mg tablet,delayed release (DR/EC) 75 mg PO BID PRN (Reason: arthritis) escitalopram oxalate 5 mg tablet 5 mg PO QAM Discharge Orders: Discharge Order (Routine); Ordered 03/23/22 Ordered By: Franklin Jones/Other Patient Handouts: Small Bowel Obstruction, Low-Fiber Diet Admission Data Admit Date/Time: 03/17/22 22:29 Attending Provider: Franklin Hernandez Admit Provider: Ba Stephens Primary Care Provider: PCP,NO Other Providers: Tha Ramirez ; Adrian Gavin Other Interventions: Discharge Summary Assessment (RN) Last Done: 03/23/22 12:13 Coding Level of Care Code HOSP INP/OBS DISCH >30 MIN Diagnoses SBO (small bowel obstruction) K56.609 HTN (hypertension) I10 Hypoglycemia E16.2 Spastic bladder N32.89 Osteoarthritis M19.90
== END 2022-03-23 13:56 | disposition home or self-care (01) | DRG 389 ==
LOC: ED 17:38 → SUATTDRO 22:29 → 3N 22:29

== ENCOUNTER 2022-09-12 07:32 | Observation (INO) ==
--- NOTE | 2022-08-07 11:12 | PAT Medication Instructions ---
Medication Instructions Date of Service August 07, 2022 Home Medications diclofenac sodium 75 mg tablet,delayed release 75 mg PO BID escitalopram oxalate 5 mg tablet 5 mg PO HS oxybutynin chloride 15 mg tablet,extended release 24 hr 30 mg PO QAM Equate Allergy Relief 1 tab PO DAILY amlodipine 5 mg tablet 5 mg PO QAM aspirin 81 mg capsule 81 mg PO QPM biotin 1 tab PO QPM calcium carbonate 600 mg calcium (1,500 mg) tablet 600 mg PO QAM cyanocobalamin (vitamin B-12) 1 tab PO QAM oauttzyvqvbo-apesxkwr-dsqzaw tablet 1 tab PO QAM omega-3 fatty acids 1,200 - 2,400 mg PO UD ASK your surgeon for instructions diclofenac sodium 75 mg tablet,delayed release 75 mg PO BID STOP taking 2 weeks before surgery biotin 1 tab PO QPM omega-3 fatty acids 1,200 - 2,400 mg PO UD DO NOT take the morning of surgery oxybutynin chloride 15 mg tablet,extended release 24 hr 30 mg PO QAM Equate Allergy Relief 1 tab PO DAILY calcium carbonate 600 mg calcium (1,500 mg) tablet 600 mg PO QAM cyanocobalamin (vitamin B-12) 1 tab PO QAM bdfxrdrbwtlc-erfzoawo-qpafub tablet 1 tab PO QAM Take morning of surgery With a small sip of water, OTHERWISE NOTHING TO EAT OR DRINK AFTER MIDNIGHT: amlodipine 5 mg tablet 5 mg PO QAM Take evening before surgery escitalopram oxalate 5 mg tablet 5 mg PO HS aspirin 81 mg capsule 81 mg PO QPM (unless surgeon directed otherwise) Other Notes If you have any questions please call us at [phone] or [phone] or [phone] or [phone]
--- NOTE | 2022-08-13 09:49 | Anesthesiology Consultation ---
Date of Service August 13, 2022 Assessment & Plan (1) Encounter for pre-operative examination: - COVID screening: Per assessment on 08/13: No known COVID-19 positive contacts or current COVID-19 related symptoms. Travel screen negative. Patient vaccinated. At surgeon discretion if preop Covid testing being done. - Outpatient joint pathway: Per OR booking comments, plan for outpatient joint program. Patient seen at [facility] 08/13. Patient reports good post-op strong support (but they are discussing within the family who that will be at this point). Per Dr. Bruno, determination if okay for outpatient joint pathway would be pending evaluation of LBBB. - LBBB: Cited on 03/2022 and 08/13/2022 EKG. No comparison EKGs (prior to 03/2022) or previous echo evaluation per chart review. Reviewed with Dr. Bruno- recommends preop cardiac evaluation (scheduled 08/27, [facility] cardio). Chart Review Chart Review: Patient seen in Pre Admission Testing Teaching & Discussion Pre-Anesthesia Teaching/Discussion Notes: Instructed NPO after midnight before surgery,except medications with 15 cc of water. Medication instructions provided according to the [facility] guidelines. History Surgery Operation Date: 09/08/22 12:55 Proposed Procedures p Left Total Shoulder Arthroplasty Reverse - Phil Gutierrez, DO Height/Weight Height: 5 ft 1.5 in Weight: 53 kg Allergies Allergy/AdvReac Type Severity Reaction Status Date / Time Sulfa (Sulfonamide Allergy Severe Hospitalized Verified 08/13/22 09:52 Antibiotics) with "bad reaction and turned red" Medications Home Medications Medication Instructions Recorded Confirmed Last Taken diclofenac sodium 75 mg 75 mg PO BID 03/17/22 08/06/22 Unknown tablet,delayed release escitalopram oxalate 5 mg tablet 5 mg PO HS 03/17/22 08/06/22 03/17/22 oxybutynin chloride 15 mg 30 mg PO QAM 03/17/22 08/06/22 03/17/22 tablet,extended release 24 hr Equate Allergy Relief 1 tab PO DAILY 08/06/22 08/06/22 Unknown amlodipine 5 mg tablet 5 mg PO QAM 08/06/22 08/06/22 Unknown aspirin 81 mg capsule 81 mg PO QPM 08/06/22 08/06/22 Unknown biotin 1 tab PO QPM 08/06/22 08/06/22 Unknown calcium carbonate 600 mg calcium 600 mg PO QAM 08/06/22 08/06/22 Unknown (1,500 mg) tablet cyanocobalamin (vitamin B-12) 1 tab PO QAM 08/06/22 08/06/22 Unknown hhrzunreylfa-brfxqltt-tyzdey tablet 1 tab PO QAM 08/06/22 08/06/22 Unknown omega-3 fatty acids 1,200 - 2,400 mg PO UD 08/06/22 08/06/22 Unknown Past Medical History Medical History (Updated 08/13/22 @ 16:06 by Destiny Solano) Anxiety HTN (hypertension) Hx of small bowel obstruction 4 years ago 03/2022, hospitalized at [facility], medically managed (no surgical intervention) LBBB (left bundle branch block) Noted on 03/2022 EKG Osteoarthritis Overactive bladder Exercise / Class Metabolic Activity II 4-5 Yardwork/Stairs/Walk up hill (one FS (no CP, no SOB)) Past Family History Family History Other Family history non-contributory Past Surgical History Surgical History (Updated 08/13/22 @ 16:04 by Destiny Solano) H/O hernia repair History of esophagogastroduodenoscopy (EGD) History of hysterectomy Noted in 03/2022 PCP notes Hx of cataract extraction R/L Hx of tubal ligation Past Anesthesia History No Hx of Anesthesia Complications and No Family Hx of Anesthesia Complications (except grand-daugher PONV) History of PONV No Hx of PONV and No Hx of Motion Sickness Social History Smoking Status: Former smoker tobacco type: cigarettes Do You Dip or Chew Tobacco: No Smoking End Date: Quit several years ago Hx Alcohol Use: No Hx Substance Use: No substance use type: does not use Review of Systems Patient denies chest pain, shortness of breath, dyspnea on exertion, fever, chills, cough, wheezing, palpitations. Physical Exam Vital Signs VITALS BP 113/70 P 69 TEMP 97.6 SP02 95%RA RESP 16 PHYSICAL Full cervical extension range of motion. Full TMJ range of motion. TMD 3.5 finger breaths Mallampati Score 1 Dentition: upper/lower dentures Lungs: clear throughout to auscultation Cardiac: regular rate and rhythm, no murmurs noted Spine: normal Carotid arteries: negative bruit Extremities: no LE edema Lab Results Anesthesia Preop Results Results Anesthesia Widget: WBC 6.30 K/ul (4.8-10.8) 08/13/22 Hgb 14.1 g/dl (12.0-16.0) 08/13/22 Hct 42.9 % (37.0-47.0) 08/13/22 Plt 240 K/uL (130-400) 08/13/22 Na 137 mmol/L (136-145) 08/13/22 K 4.8 mmol/L (3.5-5.1) 08/13/22 Cl 104 mmol/L (98-107) 08/13/22 CO2 27 mmol/L (21-32) 08/13/22 BUN 28 mg/dl (6-23) H 08/13/22 Creat 0.65 mg/dl (0.6-1.2) 08/13/22 Glucose Level 86 mg/dl (70-99(Fasting)) 08/13/22 PT 10.8 Seconds (9.0-12.0) 08/13/22 PTT 28.6 Seconds (21.0-31.0) 08/13/22 INR 1.0 (0.9-1.1) 08/13/22 TSH 3.157 uIu/ml (0.300-4.500) 06/27/22 Blood Type O Positive 08/13/22 Antibody Screen NEGATIVE 08/13/22 Testing Electrocardiogram Date: 08/13/22 NSR at 66bpm. LBBB (cited on 03/17/22 ECG). Chest X-Ray Date: 08/13/22 FINDINGS: No lines and tubes are seen. Calcified aortic knob is seen. The lungs are clear. No evidence of pleural effusion or pneumothorax. IMPRESSION: No acute chest disease. COVID-19 Risk Screen Screening Information COVID-19 Screen Date: 08/13/22 Exposure 21 Days Family/Household +COVID Last 21 Days: No Exposure 10 Days Any COVID Exposure Last 10 Days: No Symptoms Last 10 Days Experienced COVID Sx Last 10 Days: No + COVID 0-90 Days COVID + in Last 0-90 Days: No
--- NOTE | 2022-09-11 14:20 | History & Physical Report ---
Date of Service September 11, 2022 Assessment & Plan (1) Rotator cuff tear: We will proceed with a left reverse shoulder arthroplasty. Postoperatively she will be placed in a sling and kept overnight in the hospital for postop medical management. She plans to use energy physical therapy upon discharge. History of Present Illness Chief Complaint: Cuff tear arthropathy of the left shoulder. Primary Care Provider: Annamaria Vaz MD Liyah is a pleasant 81-year-old female who has been having a six-month history of worsening let shoulder pain. She has pain diffusely around the arm and it radiates down to her upper arm and towards her elbow. She originally saw my partner, Dr. Arguelles, who ordered an MRI of the shoulder. On the MRI showed a large retracted rotator cuff tear. 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 She is really struggling with it. After failing conservative treatment, she has elected proceed with a left reverse shoulder arthroplasty. Allergies Allergy/AdvReac Type Severity Reaction Status Date / Time Sulfa (Sulfonamide Allergy Severe Hospitalized Verified 08/27/22 10:45 Antibiotics) with "bad reaction and turned red" Home Medications Medication Instructions Recorded Confirmed Type diclofenac sodium 75 mg 75 mg PO BID 03/17/22 08/27/22 History tablet,delayed release escitalopram oxalate 5 mg tablet 5 mg PO HS 03/17/22 08/27/22 History oxybutynin chloride 15 mg 30 mg PO QAM 03/17/22 08/27/22 History tablet,extended release 24 hr Equate Allergy Relief 1 tab PO DAILY 08/06/22 08/27/22 History aspirin 81 mg capsule 81 mg PO QPM 08/06/22 08/27/22 History biotin 1 tab PO QPM 08/06/22 08/27/22 History calcium carbonate 600 mg calcium 600 mg PO QAM 08/06/22 08/27/22 History (1,500 mg) tablet cyanocobalamin (vitamin B-12) 1 tab PO QAM 08/06/22 08/27/22 History bsjkuazaxduq-peacexgj-jfgias tablet 1 tab PO QAM 08/06/22 08/27/22 History omega-3 fatty acids 1,200 - 2,400 mg PO UD 08/06/22 08/27/22 History amlodipine 5 mg tablet 5 mg PO QAM 90 days #90 tabs 09/04/22 Rx Past Med/Surg History Medical History Anxiety HTN (hypertension) Hx of small bowel obstruction 4 years ago 03/2022, hospitalized at [facility], medically managed (no surgical intervention) LBBB (left bundle branch block) Noted on 03/2022 EKG Osteoarthritis Overactive bladder Surgical History H/O hernia repair History of esophagogastroduodenoscopy (EGD) History of hysterectomy Noted in 03/2022 PCP notes Hx of cataract extraction R/L Hx of tubal ligation Family History Other Family history non-contributory Social History Smoking Status: Former smoker Tobacco Type: Cigarettes Smoking End Date: Quit several years ago; Second Hand Exposure: No; Do You Dip or Chew Tobacco: No; Tobacco Cessation Education Requested by Patient: No Hx Alcohol Use: No Hx Substance Use: No Preferred Language: Cameroonian Communication Ability: Effective Hearing Ability: Normal Honing Machine Operator Required: No Beliefs That Will Affect Care: None marital status: / Current Living Situation: Family Current Living Situation Comment: lives with daughter and dogs current occupational status: retired Other Information That Helps Us Care for You: No Feels Safe at Home: Yes Safety Concerns: Feels Safe At This Time Diet: regular caffeine: Yes Dental Care, Regularly: No Physical Activity Frequency: 3-4 Times per Week Seatbelt Use: always Assistive Devices: Denture - Upper, Denture - Lower and Glasses Review of Systems All systems reviewed & are unremarkable except as noted in HPI & below. Physical Exam Physical examination left shoulder shows a pseudoparalysis. Passively I can go through full range of motion. She does have pain with range of motion.. Constitutional WD/WN, vitals as above Eyes PERRL, conjunctivae normal, anicteric sclerae ENMT external ear and nose normal, oropharynx normal Neck trachea midline, no thyromegaly Respiratory normal respiratory effort, lungs clear to auscultation Cardiovascular RRR, no murmur, no edema Gastrointestinal (Abdomen) normal bowel sounds, soft, nontender, no hepatosplenomegaly Skin no rashes, warm and dry Psychiatric A+Ox3, euthymic affect Results & Data Results & Data Laboratory Results . Diagnostic Findings X-rays and MRI of the left shoulder show signs of cuff tear arthropathy with large retracted rotator cuff tear.. PG Care Time/CCT Total # of Minutes Spent Total Time Spent with Patient: Total time spent is greater than 50% in coordination of care (as documented) at patient's floor/unit and/or counseling patient: Coding Level of Care Code None Diagnoses Rotator cuff tear M75.100
[~2022-09-12 07:32] MED LIST: ACETAMINOPHEN 500 MG TAB PO SCH; BUPIVACAINE 0.5 % 5 MG/1 ML PF 10ML VIAL ONE; FAMOTIDINE 20 MG TAB PO SCH; GABAPENTIN 300 MG CAP PO SCH; LR 500ML BOLUS, THEN 15ML/HR IV SCH; LR 60ML/HR IV SCH; ORTHO JOINT MIX INFIL SCH; TRANEXAMIC ACID 1,000 MG **IV Intra-op IV SCH; TRANEXAMIC ACID 1,000 MG **IV Pre-op IV SCH; ceFAZolin 2000MG 2,000 MG/15 ML SYR IV SCH; dexAMETHasone 4 MG TAB PO SCH
[2022-09-12] MEDS ORDERED: ORTHO JOINT ANESTHETIC ONE (09:32)
[2022-09-12] MEDS ORDERED: fentaNYL citrate PF 100 MCG/2 ML VIAL ONE (09:36)
[2022-09-12] MEDS ORDERED: MIDAZOLAM HCL 1 MG/ML 2ML VIAL ONE (09:36)
--- NOTE | 2022-09-12 09:59 | History & Physical Bridge Note ---
Date of Service September 12, 2022 History & Physical Bridge Note I have examined the patient, reviewed the History & Physical and in the interval since the performance of the History & Physical I have noted the following changes of clinical significance: no changes noted
[2022-09-12] MEDS ORDERED: fentaNYL citrate PF 100 MCG/2 ML VIAL IV PRN (10:02)
[2022-09-12] MEDS ORDERED: ATROPINE SULFATE 0.1 MG/ML 10ML SYR IV PRN (10:02)
[2022-09-12] MEDS ORDERED: ONDANSETRON INJ 2 MG/ML 2 ML VIAL IV PRN ×2 (10:02→13:46)
[2022-09-12] MEDS ORDERED: KETOROLAC 30 MG/ML VIAL IV PRN (10:02)
--- NOTE | 2022-09-12 11:07 | Operative Report ---
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 tendinopathy long head of the biceps tendon I identified the patient and participated in the time-out.: Yes Procedure Operation Date: 09/12/22 10:00 Actual Procedures p Left Total Shoulder Arthroplasty Reverse(Left) with open biceps tenodesis as a distinct and separate procedure (modifier 59)- Phil Gutierrez DO Surgeon Phil Gutierrez DO Copra Sampler Phil Stock PA-C Estimated Blood Loss 5 Findings Consistent with Post-Op Diagnosis Specimens Left humeral head Description of Procedure A CPT code modifier 59: The long head of the biceps tendon was enlarged and inflamed consistent with tendinopathy. A tenodesis was opted. This was a separate and distinct portion of the procedure. For these reasons, a CPT code modifier 59 will be added to this case. Implants used: I used a [employer] Comprehensive reverse total shoulder arthroplasty system with a size 12 press fit micro humeral stem, a +6 offset humeral tray and a standard humeral bearing, a 25 mm baseplate with a 6.5 mm central screw and superior and inferior locking screws, and a size 36 mm eccentric glenosphere. Liyah arrived at [facility] for the above procedure. She was seen in the preoperative holding area and the operative extremity was identified and signed. She was given a preoperative antibiotic, TXA, and an interscalene nerve block. She was taken back to the operating room, laid on table in supine position, and put under general anesthesia. She was then put into the beachchair position. The shoulder was then prepped and draped in sterile fashion. A timeout was done and the patient and the operative extremity was properly identified. A deltopectoral approach was used. Dissection was taken down through the fascia and the deltoid was retracted laterally and the conjoined tendon was retracted medially. The anterior shoulder was exposed. The biceps groove was opened up and the biceps tendon was examined extensively. The biceps tendon demonstrated enlargement and inflammatory changes consistent with longstanding inflammation in the context of osteoarthritis and cuff arthropathy. The long head of the biceps tendon was then tenodesed to the upper border of the pectoralis major. This was a separate and distinct portion of the procedure. The subscapularis was then directly released off the lesser tuberosity with a peel technique. The inferior capsule was released and the humeral head was dislocated. A canal finding reamer was sent down the center of the humeral canal. Sequential reaming up to a size 12 reamer was done. Off that reamer, a proximal humeral resection guide was placed. The proximal humerus was resected at 135 of inclination and 25 of retroversion. Osteophytes were then removed and the glenoid was exposed. Time was spent doing a complete capsular and labral rel ease. The glenoid guide was then placed in the inferior aspect of the glenoid. A 3.2 mm Steinmann pin was then placed into the glenoid vault at 10 of inclination. The glenoid baseplate was then reamed. The final size 25 mm baseplate was then impacted in the place. A 6.5 mm central screw was then placed followed by superior and inferior locking screws. A 36 mm eccentric glenosphere was then impacted into place. Surrounding soft tissues were then injected with 100 cc an orthopedic pain control cocktail. The proximal humerus was then exposed. Sequential broaching of the humerus up to a size 12 broach was done. Off that broach a +6 offset humeral tray was trialed. The shoulder was then reduced, brought through a full range of motion, and felt to be stable. The shoulder was then dislocated and the broach was removed. The final size 12 micro press-fit humeral stem was then impacted into place. A standard humeral bearing was then snapped onto a +6 offset humeral tray. The humeral tray was then impacted onto the humeral stem. The shoulder was once again reduced, brought through a full range of motion, and felt to be stable. The subscapularis was retracted and unable to be repaired. A dilute betadyne lavage was then done for 3 minutes. The joint was then irrigated with normal saline solution. Hemostasis was obtained. The interval was closed with 2-0 Vicryl suture. The skin was then closed with 2-0 Vicryl and marissa. A Silverlon dressing was placed and the arm was rested in a regular arm sling. She was then extubated and transferred to a hospital bed. She taken to the postanesthesia care unit in stable condition. She tolerated the procedure well. Phil Stock PA-C, was present for the entire procedure. He was critical for patient positioning, prepping, draping, retraction exposure, wound closure and application of sterile dressing. I attest to the content of the Intraoperative Record and any orders documented therein. Any exceptions are noted below.
[2022-09-12] MEDS ORDERED: PROPOFOL IV EMULSION 10 MG/ML 20 ML VIAL IV ONE (11:18)
[2022-09-12] MEDS ORDERED: ePHEDrine sulfate 50 MG/ML SYR ONE (11:18)
[2022-09-12] MEDS ORDERED: PHENYLEPHRINE HCL 10 MG/ML VIAL ONE (11:18)
[2022-09-12] MEDS ORDERED: ONDANSETRON INJ 2 MG/ML 2 ML VIAL ONE (11:18)
--- NOTE | 2022-09-12 12:04 | XRay Report ---
XR shoulder LT min 2V routine HISTORY: 81 years-old Female Post shoulder surgery left shoulder arthroplasty COMPARISON: 08/13/2022 TECHNIQUE: 2 views of the left shoulder FINDINGS: Reverse total joint arthroplasty demonstrates satisfactory alignment without acute fracture. Overlyin g skin marissa with expected postoperative soft tissue swelling and deep tissue air. IMPRESSION: Left shoulder arthroplasty with expected postoperative changes. ACT 112: Negative or not required by law. The above report was generated using voice recognition software. It may contain grammatical, syntax o r spelling errors. Electronically signed by: John Chavira M.D. 09/12/2022 12:03 PM
--- NOTE | 2022-09-12 12:49 | Anesthesiology Progress Note ---
Date of Service September 12, 2022 Anesthesia Post Procedure Vital Signs Vital Signs: Temp Pulse Pulse Resp BP Pulse Ox O2 Del Method 09/12/22 12:05 69 12 114/63 100 Oxymask 09/12/22 11:55 69 23 111/68 100 Oxymask 09/12/22 11:45 68 13 108/58 L 100 Oxymask 09/12/22 11:35 76 17 124/60 100 Oxymask 09/12/22 11:28 36 C L 69 20 120/53 L 100 Oxymask 09/12/22 08:09 36.4 C L 65 18 141/64 H 97 Room Air O2 Flow Rate 09/12/22 12:05 3 09/12/22 11:55 3 09/12/22 11:45 3 09/12/22 11:35 6 09/12/22 11:28 6 09/12/22 08:09 Transfer of Care Handoff Completed per policy Notes Mental Status: alert / awake / arousable Patient Amnestic to Procedure: Yes Nausea / Vomiting: adequately controlled Pain: adequately controlled Airway Patency, RR, SpO2: stable & adequate BP & HR: stable & adequate Hydration State: stable & adequate Anesthetic Complications: no major complications apparent
[2022-09-12] MEDS ORDERED: bisacodyL 10 MG SUPP PR PRN (13:46)
[2022-09-12] MEDS ORDERED: HYDROmorphone INJ 0.5 MG/0.5 ML SYR IV PRN (13:46)
[2022-09-12] MEDS ORDERED: METOCLOPRAMIDE HCL INJ 5 MG/ML 2 ML VIAL IV PRN (13:46)
[2022-09-12] MEDS ORDERED: oxyCODONE HCL IR 5 MG TAB (IMMEDIATE RELEASE) PO PRN (13:46)
[2022-09-12] MEDS ORDERED: MAGNESIUM HYDROXIDE SUSP 30 ML UDC PO PRN (13:46)
[2022-09-12] MEDS ORDERED: NALOXONE HCL 0.4 MG/1 ML VIAL/CARP IV PRN (13:46)
[2022-09-12] MEDS: KETOROLAC TROMETHAMINE 15 MG/ML VIAL IV SCH ×2 (14:32→20:18)
[2022-09-12] MEDS: SODIUM CHLORIDE 0.9% 1000ML 1,000 ML IV SCH (14:32)
[2022-09-12] MEDS: ceFAZolin 2000MG 2,000 MG/15 ML SYR IV SCH (18:35)
[2022-09-12] MEDS: DOCUSATE SODIUM 100 MG CAP PO SCH (20:17)
[2022-09-12] MEDS ORDERED: SENNA 8.6 MG TAB PO SCH (21:00)
[2022-09-12] MEDS ORDERED: ESCITALOPRAM OXALATE 10 MG TAB PO SCH (21:00)
[2022-09-12] MEDS ORDERED: ASPIRIN 81 MG ECTAB PO SCH (21:00)
[2022-09-12] MEDS: ACETAMINOPHEN 500 MG TAB PO SCH (21:51)
[2022-09-13] MEDS: KETOROLAC TROMETHAMINE 15 MG/ML VIAL IV SCH ×2 (01:17→08:23)
[2022-09-13] MEDS: ceFAZolin 2000MG 2,000 MG/15 ML SYR IV SCH (01:18)
[2022-09-13] MEDS: SODIUM CHLORIDE 0.9% 1000ML 1,000 ML IV SCH (05:21)
[2022-09-13] MEDS: ACETAMINOPHEN 500 MG TAB PO SCH (05:44)
[2022-09-13] MEDS ORDERED: dexAMETHasone 4 MG TAB PO SCH (08:00)
[2022-09-13] MEDS: DOCUSATE SODIUM 100 MG CAP PO SCH (08:18)
[2022-09-13] MEDS ORDERED: MULTIVITAMIN TAB PO SCH (09:00)
[2022-09-13] MEDS ORDERED: OXYBUTYNIN CHLORIDE XL 5 MG TABCR PO SCH (09:00)
[2022-09-13] MEDS ORDERED: amLODIPine BESYLATE 5 MG TAB PO SCH (09:00)
--- NOTE | 2022-09-13 09:09 | Orthopedic Progress Note ---
Date of Service September 13, 2022 Assessment & Plan (1) Status post reverse total replacement of left shoulder: Overall she is doing very well. She is not having much pain in the left shoulder. She will be seen by physical therapy today for ambulation and range of motion exercises. She can be discharged home later today. She will follow- up with orthopedics in 2 weeks. Essence Pelletier was seen and examined at bedside this morning. Overall she is doing very well. She is not having much pain in the left shoulder. She was able to get some sleep last night. She has no complaints.. Review of Systems All systems reviewed & are unremarkable except as noted in HPI & below. Physical Exam On physical examination of the left shoulder, the dressing is clean and dry. She is wearing her sling as instructed. She has motion of her hand and her wrist.. Results & Data Results & Data Laboratory Results . Diagnostic Findings Postoperative x-rays of the left shoulder show the prosthesis to be in anatomic alignment without any evidence of fracture, dislocation, or loosening.. PG Care Time/CCT Total # of Minutes Spent Total Time Spent with Patient: Total time spent is greater than 50% in coordination of care (as documented) at patient's floor/unit and/or counseling patient: Coding Level of Care Code 31750 Post Operative Follow-Up Diagnoses Status post reverse total replacement of left shoulder Z96.612
--- NOTE | 2022-09-13 09:10 | Discharge Summary ---
Date of Service September 13, 2022 Admission HPI (Per Admitting) Liyah is a pleasant 81-year-old female who has been having a six-month history of worsening let shoulder pain. She has pain diffusely around the arm and it radiates down to her upper arm and towards her elbow. She originally saw my partner, Dr. Arguelles, who ordered an MRI of the shoulder. On the MRI showed a large retracted rotator cuff tear. 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 She is really struggling with it. After failing conservative treatment, she has elected proceed with a left reverse shoulder arthroplasty. Admission Exam (Per Admitting) Physical examination left shoulder shows a pseudoparalysis. Passively I can go through full range of motion. She does have pain with range of motion.. Principal Diagnosis Same as "Discharge Diagnosis" noted below under Discharge Instructions. Discharge Exam On physical examination of the left shoulder, the dressing is clean and dry. She is wearing her sling as instructed. She has motion of her hand and her wrist.. Discharge Data Procedures Performed Operation Date: 09/12/22 10:00 Actual Procedures p Left Total Shoulder Arthroplasty Reverse(Left) - Phil Gutierrez DO Ordered Studies 09/12/22 05:00 US - OR guided needle placemen Routine Hospital Course (1) Status post reverse total replacement of left shoulder: On September 12, 2022 Liyah arrived at [facility] and underwent a left reverse shoulder replaced without complication. She had a general anesthetic and a left interscalene nerve block. Postoperatively she was placed in a sling and transferred to the general orthopedic floors. Her hospital course was uneventful. On postop day #1, her vital signs were stable and her pain was well controlled. She was able to participate well with physical therapy doing ambulation and range of motion exercises. She was then discharged home. She will follow-up with orthopedics in 2 weeks. PG Care Time/CCT Total # of Minutes Spent Total Time Spent with Patient: Total time spent is greater than 50% in coordination of care (as documented) at patient's floor/unit and/or counseling patient: Discharge Plan Discharge Items Patient Disposition: Home - Home Health Services Reason For Visit: DJD Shoulder Left Discharge Diagnosis: Left reverse shoulder replacement Activity: Per Instructions section Non-emergency contact: Surgeon Call non-emergency contact if: your wound has increased redness and your wound has increased drainage Follow-up/Referrals: Annamaria Vaz MD [Primary Care Provider] - Diet: Regular Addtl Attending Provider Instructions: Activity and Therapy Recommendations: * If you are using [facility] then therapy will be provided at your home until they feel you have accomplished all of your goals. * If you are using [facility] then Physical Therapy will be provided until they feel you are ready to start Outpatient Physical Therapy. * If you are not using home therapy then Outpatient Physical Therapy should start about 3-5 days from your day of surgery. Therapy will last about 8-12 weeks * Wear your sling for 3 weeks, unless otherwise instructed. You may remove your sling to shower and to dress, but otherwise, you should be in your sling at all times, including while sleeping * The shoulder replacement is very stable and you can use your hand while in the sling * You were shown a series of exercises in the hospital. Do these exercises daily including the exercises you were shown in physical therapy. Medications: * Narcotic You will likely be sent home from the hospital with a prescription for the narcotic pain medication that worked best throughout your stay. * Other medications may be prescribed for specific circumstances. If you have any questions, please call the office at . * Resume previous home medications unless otherwise instructed Dressing Care: Leave the Silverlon dressing in place for 7 days. After 7 days you may remove the dressing. If the incision is not draining then you may leave the marissa open to air. If there is a little bit of drainage or if the marissa are getting stuck on your clothing then cover the incision with a dry dressing. The marissa will be removed at your 2 week follow-up appointment. Showering: You may shower with the Silverlon dressing in place. Do not let the shower spray hit the dressing directly. Pat the Silverlon dressing dry. If the dressing becomes wet underneath, then simply remove the dressing. Keep the incision dry until you are 7 days out from the day of surgery. After 7 days you may remove the Silverlon dressing and shower with the marissa exposed. Let soapy water run over the marissa and pat them dry. Do not scrub or soak the incision. Things To Watch For: * Drainage from the incision site that occurs more than one week after your surgery. * Increased redness at the incision site. * Fever above 102 degrees Fahrenheit. * Unusual chest pain or shortness of breath. * Call [facility] at with any of the above problems Follow-Up Visit: Follow-up with Dr. Gutierrez's PA (Phil Stock) 2-3 weeks after your day of surgery. He will remove your marissa and answer any questions. If you have any additional questions or concerns, Dr Gutierrez is usually in the office at the same time and will be available An appointment was probably scheduled when you signed-up for surgery in the office. If you have any questions call More detailed instructions as well as Frequently Asked Questions were provided in a folder by our office when you signed-up for surgery. Please review these instructions when you get home. If you have any further questions or concerns, please feel free to call the office at [phone] Pending Studies at Discharge: No Stand-Alone Forms: My [facility] Medications and DC Order Prescriptions: New oxycodone-acetaminophen 5-325 mg tablet 1 tab PO Q6H PRN (Reason: pain) Qty: 30 0RF Continued amlodipine 5 mg tablet 5 mg PO QAM 90 Days Qty: 90 3RF oxybutynin chloride 15 mg tablet extended release 24hr 30 mg PO QAM diclofenac sodium 75 mg tablet,delayed release (DR/EC) 75 mg PO BID escitalopram oxalate 5 mg tablet 5 mg PO HS calcium carbonate [Caltrate 600] 600 mg calcium (1,500 mg) Tablet 600 mg PO QAM Centrum Silver Tablet 1 tab PO QAM Vitamin B-12 Tablet,Chewable 1 tab PO QAM Fish Oil Capsule 1,200 - 2,400 mg PO UD Rx Instructions: 2 cap QAM and 1 cap HS aspirin 81 mg Capsule 81 mg PO QPM Equate Allergy Relief 1 tab PO DAILY biotin 1 tab PO QPM Admission Data Admit Date/Time: 09/12/22 11:27 Attending Provider: Phil Gutierrez Admit Provider: Phil Gutierrez Primary Care Provider: Annamaria Vaz
== END 2022-09-13 12:43 | disposition home health service (06) ==
LOC: 3E 07:32 → ASU 07:32